=== PATIENT | male | born 1990 | race Caucasian/White ===

== ENCOUNTER 2017-06-04 16:52 | Emergency (ER) | payer OTHER ==
[2017-06-04 17:02] VITALS: BP 138/66; PULSE 103; RESP 18; TEMP 97.1
[2017-06-04] MEDS ORDERED: IBUPROFEN 600 MG TAB PO STA (17:23)
--- NOTE | 2017-06-04 17:33 | ED ---
Wound/Laceration HPI - General Chief Complaint: Wound/Laceration Stated Complaint: IHS-Thumb Injury Time Seen by Provider: 06/04/17 17:02 Source: patient Mode of arrival: ambulatory Limitations: no limitations - History of Present Illness Initial Comments: 26-year-old male patient presents to the emergency department today for evaluation of right thumb injury. Patient states around 09 100 this morning he dropped a 200 pound pool box on his thumb. Patient states he has been having throbbing pain to the thumb since then. States he has blood beneath his nail. States that he is able to bend the finger however it hurts worse when he flexes it. He denies any numbness or tingling to the finger. Denies any pain in his hand. Denies any other injuries. Patient denies any headache, neck pain, back pain, chest pain, shortness of breath, dizziness, weakness, abdominal pain, nausea, vomiting, or difficulties with bowel movements or urination. States his last tetanus immunization was one year ago. - Related Data Home Medications Medication Instructions Recorded Confirmed Buprenorphine HCl/Naloxone HCl 1 tab SUBLINGUAL BID 06/04/17 06/04/17 [Zubsolv 5.7-1.4 mg Tablet Sl] Allergies Allergy/AdvReac Type Severity Reaction Status Date / Time No Known Allergies Allergy Verified 06/04/17 17:26 Review of Systems ROS Statement: Those systems with pertinent positive or pertinent negative responses have been documented in the HPI. ROS Other: All systems not noted in ROS Statement are negative. Past Medical History Past Medical History: No Reported History History of Any Multi-Drug Resistant Organisms: None Reported Past Surgical History: No Surgical Hx Reported Past Psychological History: Anxiety Smoking Status: Current every day smoker Past Alcohol Use History: None Reported Past Drug Use History: None Reported General Exam Limitations: no limitations General appearance: alert, in no apparent distress, other (This is a well- developed, well-nourished adult male patient in no acute distress. Vital signs upon presentation are temperature 97.1F, pulse 103, respirations 18, blood pressure 138/66, pulse ox 97% on room air.) Eye exam: Present: normal appearance, PERRL, EOMI. Absent: scleral icterus, conjunctival injection, periorbital swelling ENT exam: Present: normal exam, normal oropharynx, mucous membranes moist Respiratory exam: Present: normal lung sounds bilaterally. Absent: respiratory distress, wheezes, rales, rhonchi, stridor Cardiovascular Exam: Present: regular rate, normal rhythm, normal heart sounds. Absent: systolic murmur, diastolic murmur, rubs, gallop, clicks Extremities exam: Present: full ROM, tenderness (Tenderness over the right thumb ), normal capillary refill, other (Patient has a subungual hematoma approximately 80% of the nail is involved. Patient has abrasion noted to the proximal nail fold. Skin is otherwise pink, warm, and dry. Radial pulses 2+ and equal bilaterally.). Absent: normal inspection, pedal edema, joint swelling , calf tenderness Neurological exam: Present: alert, oriented X3, CN II-XII intact Psychiatric exam: Present: normal affect, normal mood Skin exam: Present: warm, dry, intact, normal color. 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 Physical examination did reveal mild swelling surrounding the right thumb. There was subungual hematoma approximately 80%. Patient did have some blood leakage from the proximal nail fold. Patient's last tetanus was one year ago. X-ray was negative for any acute fracture or dislocation. I did discuss trephination with the patient including risks and benefits. He decided to not have the procedure performed at this time. I did educate regarding return parameters, signs or symptoms of infection, and pain control. He'll be given a finger splint to wear at work to protect the finger. He is instructed to follow-up with [facility] for further evaluation. Instructed to return here immediately for any new, worsening, or concerning symptoms. He verbalizes understanding and agrees with this plan. - Radiology Data Radiology results: report reviewed, image reviewed 3 views of the right thumb are obtained. No fracture nor dislocation. Joint spaces are normal. Impression by Dr. Rojas shows negative right thumb exam. Disposition Clinical Impression: Hematoma, subungual, thumb, right, Thumb contusion Disposition: HOME SELF-CARE Condition: Good Instructions: Subungual Hematoma (ED), Contusion in Adults (ED) Additional Instructions: Apply ice, take Tylenol and Motrin for pain control. Keep splint in place while working to protect the thumb. Monitor for signs or symptoms of infection including but not limited to redness, streaking of red, swelling, drainage of pus, fever, or chills. Follow up with [facility] for further evaluation if necessary. Return here immediately for any new, worsening, or concerning symptoms. Referrals: Marj Adams MD [Primary Care Provider] - 1-2 days Time of Disposition: 18:07
--- NOTE | 2017-06-04 17:54 | XR ---
EXAMINATION TYPE: XR finger RT DATE OF EXAM: 06/04/2017 COMPARISON: NONE HISTORY: Pain and injury TECHNIQUE: 3 views FINDINGS: I see no fracture nor dislocation. Joint spaces are normal. IMPRESSION: Negative right thumb exam.
== END 2017-06-04 18:22 | disposition home or self-care (01) ==
LOC: EC 16:52
DX: S60.111A Contusion of right thumb with damage to nail, initial encounter (principal); F17.200 Nicotine dependence, unspecified, uncomplicated; W20.8XXA Other cause of strike by thrown, projected or falling object, initial encounter; Y99.0 Civilian activity done for income or pay; Y92.69 Other specified industrial and construction area as the place of occurrence of the external cause
CPT/HCPCS: 99283

== ENCOUNTER 2017-11-02 01:24 | Emergency (ER) | payer OTHER ==
[2017-11-02] MEDS ORDERED: SODIUM CHLORIDE 0.9% 1,000 ML IV ONE (01:57)
[2017-11-02] MEDS ORDERED: LORazepam 2 MG/ML INJ IV STA (01:57)
[2017-11-02] MEDS ORDERED: diphenhydrAMINE 50 MG/ML 1 ML VIAL IVP STA (01:57)
[2017-11-02] MEDS ORDERED: METOCLOPRAMIDE 5 MG/ML 2 ML VIAL IVP STA (01:57)
[2017-11-02] MEDS ORDERED: KETOROLAC 30 MG/ML 1 ML VIAL IVP STA (01:57)
--- NOTE | 2017-11-02 02:14 | ED ---
General Adult HPI - General Chief complaint: Recheck/Abnormal Lab/Rx Stated complaint: withdrawal Time Seen by Provider: 11/02/17 01:32 Source: patient Mode of arrival: ambulatory Limitations: no limitations - History of Present Illness Initial comments: 27-year-old male patient presents to the emergency department today for evaluation of withdrawal from zubsolv. Patient has been taking this medication for the last 2 years for history of prescription drug addiction. Patient states that 4 days ago he stopped taking the zubsolv because he wanted to stop taking it. Patient states that since Sunday he has been having this burning headache to the posterior head. He states that he has been slightly nauseated. States he is been in bed for the last 4 days. States he feels very tired. Patient was hoping to come here for detox. Patient denies any recent rash, fever , chills, shortness breath, chest pain, abdominal pain, vomiting, diarrhea, constipation, back pain, numbness, tingling, dizziness, weakness, hematuria, dysuria, urinary urgency, urinary frequency, visual changes, or any other complaints. - Related Data Home Medications Medication Instructions Recorded Confirmed Buprenorphine HCl/Naloxone HCl 1 tab SUBLINGUAL BID 06/04/17 06/04/17 [Zubsolv 5.7-1.4 mg Tablet Sl] Allergies Allergy/AdvReac Type Severity Reaction Status Date / Time No Known Allergies Allergy Verified 11/02/17 01:30 Review of Systems ROS Statement: Those systems with pertinent positive or pertinent negative responses have been documented in the HPI. ROS Other: All systems not noted in ROS Statement are negative. Past Medical History Past Medical History: No Reported History History of Any Multi-Drug Resistant Organisms: None Reported Past Surgical History: No Surgical Hx Reported Past Psychological History: Anxiety Smoking Status: Current every day smoker Past Alcohol Use History: Occasional Past Drug Use History: None Reported General Exam Limitations: no limitations General appearance: alert, in no apparent distress, other (Social well-developed , well-nourished adult male patient in no acute distress. Vital signs upon presentation are temperature 98.5F, pulse 124, respirations 18, blood pressure 141/89, pulse ox 97% on room air.) Eye exam: Present: normal appearance, PERRL, EOMI. Absent: scleral icterus, conjunctival injection, periorbital swelling ENT exam: Present: normal exam, normal oropharynx, mucous membranes moist Respiratory exam: Present: normal lung sounds bilaterally. Absent: respiratory distress, wheezes, rales, rhonchi, stridor Cardiovascular Exam: Present: normal rhythm, tachycardia, normal heart sounds. Absent: systolic murmur, diastolic murmur, rubs, gallop, clicks GI/Abdominal exam: Present: soft, normal bowel sounds. Absent: distended, tenderness, guarding, rebound, rigid Neurological exam: Present: alert, oriented X3, CN II-XII intact, other ( Strength in all 4 extremities is 5/5.) Psychiatric exam: Present: normal affect, normal mood Skin exam: Present: warm, dry, intact, normal color. Absent: rash Course Vital Signs 11/02/17 01:27 Temperature 98.5 F Pulse Rate 124 H Respiratory 18 Rate Blood Pressure 141/89 O2 Sat by Pulse 97 Oximetry Medical Decision Making - Medical Decision Making 27 year-old male patient presented to the emergency department today complaining of withdrawal from zubsolv. Patient states he stopped taking the medication 4 days ago. His chief complaint is of burning headache. He was given pain medication and IV fluids here in the department as well as ativan. Upon re- evaluation symptoms are improved. We did discuss follow up outpatient for admission to rehabilitation facilities. He was given a list of available facilities. He is instructed to follow up with his primary care physician in 1- 2 days. Return parameters were discussed in detail. He verbalizes understanding and agrees with this plan. Disposition Clinical Impression: Symptom of drug withdrawal Disposition: HOME SELF-CARE Condition: Good Instructions: Opioid Withdrawal (ED) Additional Instructions: Use outpatient referral list to find appropriate rehabilitation facility. Follow up with your primary care physician for recheck in 1-2 days. Return here immediately for any new, worsening, or concerning symptoms. Is patient prescribed a controlled substance at d/c from ED?: No Referrals: Marj Adams MD [Primary Care Provider] - 1-2 days Time of Disposition: 03:45
[2017-11-02 03:57] VITALS: BP 141/82; PULSE 81; RESP 17; TEMP 97.1
== END 2017-11-02 03:56 | disposition home or self-care (01) ==
LOC: EC 01:24
DX: F19.939 Other psychoactive substance use, unspecified with withdrawal, unspecified (principal); R00.0 Tachycardia, unspecified; F17.200 Nicotine dependence, unspecified, uncomplicated; Z79.899 Other long term (current) drug therapy
CPT/HCPCS: 99283; 96374; 96375 ×3; 96361; J2060; J1200; J2765; J1885

== ENCOUNTER 2018-08-28 21:12 | Emergency (ER) | payer OTHER ==
--- NOTE | 2018-08-28 21:51 | ED ---
Psych HPI - General Source: patient, family Mode of arrival: ambulatory - History of Present Illness MD Complaint: suicidal ideation, feels depressed Onset/Timin -: week(s) Associated Psychiatric Symptoms: depression, suicidal ideation History of same: Yes Quality: getting worse Improves With: none Worsens With: none Context: recent drug abuse Associated Symptoms: denies other symptoms <Geo Wong - Last Filed: 08/28/18 21:52> <Jan Landry - Last Filed: 08/29/18 08:23> - General Chief Complaint: Psychiatric Symptoms Stated Complaint: Withdrawls, Mental Health Time Seen by Provider: 08/28/18 21:43 - History of Present Illness Initial Comments: This patient is a 28-year-old man who presents with complaint that he has been feeling suicidal. Patient states that his mood is been worsening over about the past week. He states now that he is considering suicide. Patient has had previous suicidal ideation but he states not for over a year. He is not currently receiving any treatment. (Geo Wong) - Related Data Home Medications Medication Instructions Recorded Confirmed Buprenorphine HCl/Naloxone HCl 1 tab SUBLINGUAL BID 06/04/17 08/28/18 [Zubsolv 5.7-1.4 mg Tablet Sl] Allergies Allergy/AdvReac Type Severity Reaction Status Date / Time No Known Allergies Allergy Verified 08/28/18 21:48 Review of Systems ROS Other: All systems not noted in ROS Statement are negative. Constitutional: Denies: fever Respiratory: Denies: cough, dyspnea Cardiovascular: Denies: chest pain, palpitations Gastrointestinal: Denies: abdominal pain, vomiting, diarrhea Musculoskeletal: Denies: back pain Neurological: Denies: headache, weakness, numbness Psychiatric: Reports: depression, suicidal thoughts. Denies: auditory hallucinations, visual hallucinations, homicidal thoughts <Geo Wong - Last Filed: 08/28/18 21:52> ROS Other: All systems not noted in ROS Statement are negative. <Jan Landry - Last Filed: 08/29/18 08:23> ROS Statement: Those systems with pertinent positive or pertinent negative responses have been documented in the HPI. Past Medical History Past Medical History: No Reported History History of Any Multi-Drug Resistant Organisms: None Reported Past Surgical History: No Surgical Hx Reported Past Psychological History: Anxiety, Depression Smoking Status: Current every day smoker Past Alcohol Use History: Occasional Past Drug Use History: Cocaine, Marijuana, Methamphetamine <Geo Wong Last Filed: 08/28/18 21:52> General Exam Limitations: no limitations General appearance: alert, in no apparent distress Head exam: Present: atraumatic, normocephalic Eye exam: Present: normal appearance. Absent: scleral icterus, conjunctival injection ENT exam: Present: normal oropharynx Neck exam: Present: normal inspection Respiratory exam: Present: normal lung sounds bilaterally. Absent: respiratory distress, wheezes, rales, rhonchi, stridor Cardiovascular Exam: Present: regular rate, normal rhythm, normal heart sounds. Absent: systolic murmur, diastolic murmur, rubs, gallop GI/Abdominal exam: Present: soft. Absent: tenderness Extremities exam: Present: normal inspection, normal capillary refill Neurological exam: Present: alert, oriented X3, normal gait Psychiatric exam: Present: normal affect, depressed, suicidal ideation. Absent: agitated, anxious, flat affect, manic, homicidal ideation Skin exam: Present: warm, dry, intact, normal color. Absent: rash <Geo Wong Filed: 08/28/18 21:52> Course Vital Signs 08/28/18 08/29/18 21:32 05:56 Temperature 98.2 F Pulse Rate 112 H 100 Respiratory 20 18 Rate Blood Pressure 131/88 112/59 O2 Sat by Pulse 98 97 Oximetry Medical Decision Making - Lab Data Lab Results 08/28/18 Range/Units 20:07 Urine Opiates Screen Not Detected (NotDetected) Ur Oxycodone Screen Not Detected (NotDetected) Urine Methadone Screen Not Detected (NotDetected) Ur Propoxyphene Screen Not Detected (NotDetected) Ur Barbiturates Screen Not Detected (NotDetected) U Tricyclic Antidepress Not Detected (NotDetected) Ur Phencyclidine Scrn Not Detected (NotDetected) Ur Amphetamines Screen Not Detected (NotDetected) U Methamphetamines Scrn Not Detected (NotDetected) U Benzodiazepines Scrn Not Detected (NotDetected) Urine Cocaine Screen Not Detected (NotDetected) U Marijuana (THC) Screen Not Detected (NotDetected) Disposition <Geo Wong Filed: 08/28/18 21:52> <Jan Landry - Last Filed: 08/29/18 08:23> Clinical Impression: Suicidal ideation Disposition: TRANSFER TO PSYCH HOSP/UNIT Referrals: None,Stated [Primary Care Provider] - 1-2 days
[2018-08-28 22:36] LABS: Amphetamine Screen,Urine Not Detected (NotDetected); Barbiturate Screen,Urine Not Detected (NotDetected); Benzodiazepines Screen,Urine Not Detected (NotDetected); Cocaine Screen,Urine Not Detected (NotDetected); Methadone Screen, Urine Not Detected (NotDetected); Opiate Screen,Urine Not Detected (NotDetected); Oxycodone Screen, Urine Not Detected (NotDetected); Phencyclidine Screen,Urine Not Detected (NotDetected); Tricyclic Antidepressant,Urine Not Detected (NotDetected); Urn Cannabinoid Scrn Not Detected (NotDetected)
[2018-08-29] MEDS ORDERED: ALPRAZolam 0.25 MG TAB PO STA (08:31)
[2018-08-29 11:01] VITALS: BP 132/89; PULSE 93; RESP 19; TEMP 98.5
== END 2018-08-29 11:32 ==
LOC: EC 21:12
DX: R45.851 Suicidal ideations (principal); F32.9 Major depressive disorder, single episode, unspecified; F19.10 Other psychoactive substance abuse, uncomplicated; F17.200 Nicotine dependence, unspecified, uncomplicated; Z79.899 Other long term (current) drug therapy
CPT/HCPCS: 80306; 82075; 99285

== ENCOUNTER 2018-09-13 12:09 | Emergency (ER) | payer OTHER ==
[2018-09-13 12:20] VITALS: BP 115/73; RESP 18
--- NOTE | 2018-09-13 13:08 | ED ---
Psych HPI - General Chief Complaint: Psychiatric Symptoms Stated Complaint: Withdrawls Time Seen by Provider: 09/13/18 12:22 Source: patient, RN notes reviewed Mode of arrival: ambulatory Limitations: no limitations - History of Present Illness Initial Comments: This a 28 year old male presents emergency Department with chief complaint of withdrawals. Patient states that he was recently admitted to [facility] for drug relapse. Patient states that he was on Suboxone is that her though he was not discharged with it because he cannot describe it. Patient states that he is advised to follow up with [facility] but states at [facility] is not having appointment for one month. Patient was receiving Suboxone from Dr. Barrios though after his relapse he will was not willing to prescribe it anymore. Patient states that he feels that he is withdrawing from it states that he's had nausea vomiting, heart racing. Patient states he just generalized does not feel well. He states he has multiple flulike symptoms. Patient denies being suicidal or homicidal. - Related Data Home Medications Medication Instructions Recorded Confirmed Atomoxetine HCl [Strattera] 40 mg PO DAILY 09/13/18 09/13/18 Doxepin HCl [SINEquan] 150 mg PO HS 09/13/18 09/13/18 buPROPion XL [Wellbutrin Xl] 150 mg PO DAILY 09/13/18 09/13/18 Allergies Allergy/AdvReac Type Severity Reaction Status Date / Time No Known Allergies Allergy Verified 09/13/18 12:24 Review of Systems ROS Statement: Those systems with pertinent positive or pertinent negative responses have been documented in the HPI. ROS Other: All systems not noted in ROS Statement are negative. Past Medical History Past Medical History: No Reported History Additional Past Medical History / Comment(s): heroine and cocaine use History of Any Multi-Drug Resistant Organisms: None Reported Past Surgical History: No Surgical Hx Reported Past Psychological History: Anxiety, Depression Smoking Status: Current every day smoker Past Alcohol Use History: Occasional Past Drug Use History: Cocaine, Marijuana, Methamphetamine General Exam Limitations: no limitations General appearance: alert, in no apparent distress Head exam: Present: atraumatic, normocephalic, normal inspection Eye exam: Present: normal appearance, PERRL, EOMI. Absent: scleral icterus, conjunctival injection, periorbital swelling ENT exam: Present: normal exam, mucous membranes moist Neck exam: Present: normal inspection. Absent: tenderness, meningismus, lymphadenopathy Respiratory exam: Present: normal lung sounds bilaterally. Absent: respiratory distress, wheezes, rales, rhonchi, stridor Cardiovascular Exam: Present: normal rhythm, tachycardia, normal heart sounds. Absent: systolic murmur, diastolic murmur, rubs, gallop, clicks GI/Abdominal exam: Present: soft, normal bowel sounds. Absent: distended, tenderness, guarding, rebound, rigid Neurological exam: Present: alert, oriented X3, CN II-XII intact Psychiatric exam: Present: normal affect, normal mood Skin exam: Present: warm, dry, intact, normal color. Absent: rash Course Vital Signs 09/13/18 12:17 Temperature 98.7 F Pulse Rate 118 H Respiratory 18 Rate Blood Pressure 115/73 O2 Sat by Pulse 98 Oximetry Medical Decision Making - Medical Decision Making 28-year-old male presented for withdrawal from Suboxone. Patient case was evaluated by EPS and psychiatrists patient has an appointment made for him now on Sunday with [facility] for his Suboxone. Patient agrees this plan is not suicidal or homicidal. - Lab Data Lab Results 09/13/18 Range/Units 12:55 Urine Opiates Screen Not Detected (NotDetected) Ur Oxycodone Screen Not Detected (NotDetected) Urine Methadone Screen Not Detected (NotDetected) Ur Propoxyphene Screen Not Detected (NotDetected) Ur Barbiturates Screen Not Detected (NotDetected) U Tricyclic Antidepress Detected H (NotDetected) Ur Phencyclidine Scrn Not Detected (NotDetected) Ur Amphetamines Screen Not Detected (NotDetected) U Methamphetamines Scrn Not Detected (NotDetected) U Benzodiazepines Scrn Detected H (NotDetected) Urine Cocaine Screen Not Detected (NotDetected) U Marijuana (THC) Screen Not Detected (NotDetected) Disposition Clinical Impression: Drug withdrawal Disposition: HOME SELF-CARE Condition: Stable Instructions (If sedation given, give patient instructions): Buprenorphine/Naloxone (Into the mouth) Additional Instructions: Please return to the Emergency Department if symptoms worsen or any other concerns. Is patient prescribed a controlled substance at d/c from ED?: No Referrals: None,Stated [Primary Care Provider] - 1-2 days Time of Disposition: 14:52
[2018-09-13 13:17] LABS: Amphetamine Screen,Urine Not Detected (NotDetected); Barbiturate Screen,Urine Not Detected (NotDetected); Benzodiazepines Screen,Urine Detected (NotDetected); Cocaine Screen,Urine Not Detected (NotDetected); Methadone Screen, Urine Not Detected (NotDetected); Opiate Screen,Urine Not Detected (NotDetected); Oxycodone Screen, Urine Not Detected (NotDetected); Phencyclidine Screen,Urine Not Detected (NotDetected); Tricyclic Antidepressant,Urine Detected (NotDetected); Urn Cannabinoid Scrn Not Detected (NotDetected)
[2018-09-13 16:09] VITALS: PULSE 87; TEMP 98
== END 2018-09-13 16:13 | disposition home or self-care (01) ==
LOC: EC 12:09
DX: F11.23 Opioid dependence with withdrawal (principal); R11.2 Nausea with vomiting, unspecified; F32.9 Major depressive disorder, single episode, unspecified; F41.9 Anxiety disorder, unspecified; F17.200 Nicotine dependence, unspecified, uncomplicated; Z79.899 Other long term (current) drug therapy
CPT/HCPCS: 80306; 99284

== ENCOUNTER 2019-10-19 21:56 | Emergency (ER) | payer OTHER ==
[2019-10-19] MEDS ORDERED: SODIUM CHLORIDE 0.9% 1,000 ML IV STA (22:37)
[2019-10-19 23:38] LABS: Basophils % (A) 0 %; Eosinophils % (A) 1 %; HCT 42.9 % (39.0-53.0); HGB 14.2 gm/dL (13.0-17.5); Lymphocytes # (A) 1.7 k/uL (1.0-4.8); Lymphocytes % (A) 26 %; MCH 29.6 pg (25.0-35.0); MCHC 33.1 g/dL (31.0-37.0); MCV 89.2 fL (80.0-100.0); Mean Platelet Volume 6.6; Monocytes # (A) 0.3 k/uL (0-1.0); Monocytes % (A) 5 %; Neutrophils # (A) 4.3 k/uL (1.3-7.7); Neutrophils % (A) 66 %; Platelet Count 301 k/uL (150-450); RDW 12.7 % (11.5-15.5); WBC 6.6 k/uL (3.8-10.6)
[2019-10-19 23:44] LABS: Appearance,Urine Clear (Clear); Bilirubin,Urine Negative (Negative); Blood,Urine Negative (Negative); Color,Urine Yellow; Glucose,Urine (UA) Negative (Negative); Ketones,Urine 3+ (Negative); Leukocyte Esterase,Urine Negative (Negative); Nitrite,Urine Negative (Negative); Protein,Urine Trace (Negative); Specific Gravity,Urine 1.027 (1.001-1.035); Urobilinogen,Urine <2.0 mg/dL (<2.0)
--- NOTE | 2019-10-19 23:47 | XR ---
EXAMINATION TYPE: XR chest 2V DATE OF EXAM: 10/19/2019 COMPARISON: NONE HISTORY: Chest pain TECHNIQUE: 2 views FINDINGS: Heart and mediastinum are normal. Lungs are clear. Diaphragm is normal. Bony thorax appears normal. IMPRESSION: Normal chest.
[2019-10-19 23:48] LABS: Partial Thromboplastin Time 22.8 sec (22.0-30.0); Prothrombin Time 10.1 sec (9.0-12.0)
[2019-10-20 00:14] LABS: ALT 30 U/L (4-49); AST 49 U/L (17-59); African American GFR (CKD) >90 (>60 ml/min/1.73 sqM); Albumin 5.3 g/dL (3.5-5.0); Alkaline Phosphatase 85 U/L (38-126); Anion Gap 18 mmol/L; Blood Urea Nitrogen 15 mg/dL (9-20); Calcium 9.5 mg/dL (8.4-10.2); Carbon Dioxide 17 mmol/L (22-30); Chloride 102 mmol/L (98-107); Glucose 63 mg/dL (74-99); Magnesium 2.3 mg/dL (1.6-2.3); Non-African American GFR(CKD) >90 (>60 ml/min/1.73 sqM); Potassium 4.2 mmol/L (3.5-5.1); Sodium 137 mmol/L (137-145); Total Bilirubin 0.9 mg/dL (0.2-1.3); Total Protein 7.7 g/dL (6.3-8.2)
[2019-10-20 00:16] LABS: Amphetamine Screen,Urine Detected (NotDetected); Barbiturate Screen,Urine Not Detected (NotDetected); Benzodiazepines Screen,Urine Not Detected (NotDetected); Cocaine Screen,Urine Not Detected (NotDetected); Methadone Screen, Urine Not Detected (NotDetected); Opiate Screen,Urine Not Detected (NotDetected); Oxycodone Screen, Urine Not Detected (NotDetected); Phencyclidine Screen,Urine Not Detected (NotDetected); Tricyclic Antidepressant,Urine Not Detected (NotDetected); Urn Cannabinoid Scrn Not Detected (NotDetected)
[2019-10-20] MEDS ORDERED: ACETAMINOPHEN TAB 325 MG TAB PO STA (00:33)
[2019-10-20] MEDS ORDERED: ONDANSETRON 4 MG/2 ML VIAL IVP STA (00:33)
--- NOTE | 2019-10-20 00:48 | ED ---
General Adult HPI - General Chief complaint: Arrhythmia/Palpitations Stated complaint: Poss overdose Time Seen by Provider: 10/19/19 22:14 Source: patient, RN notes reviewed, old records reviewed Mode of arrival: ambulatory Limitations: no limitations - History of Present Illness Initial comments: 29-year-old male patient previously for evaluation heart palpitations. Patient reports that he has been up the last 2 days doing methamphetamine. He denies a ny chest pain or shortness of breath. He denies any other complaints. Systemic: Pt denies fatigue, fever/chills, rash. Pt denies weakness, night sweats, weight loss. Neuro: Pt denies headache, visual disturbances, syncope or pre-syncope. HEENT: Pt denies ocular discharge or irritation, otalgia, rhinorrhea, pharyngitis or notable lymphadenopathy. Cardiopulmonary: Pt denies chest pain, SOB, dyspnea on exertion. Abdominal/GI: Pt denies abdominal pain, n/v/d. : Pt denies dysuria, burning w/ urination, frequency/urgency. Denies new onset urinary or bowel incontinence. MSK: Pt denies myalgia, loss of strength or function in extremities. Neuro: Pt denies new onset weakness, paresthesias. - Related Data Home Medications Medication Instructions Recorded Confirmed Atomoxetine HCl [Strattera] 40 mg PO DAILY 09/13/18 09/13/18 Doxepin HCl [SINEquan] 150 mg PO HS 09/13/18 09/13/18 buPROPion XL [Wellbutrin Xl] 150 mg PO DAILY 09/13/18 09/13/18 Previous Rx's Medication Instructions Recorded Ondansetron Odt [Zofran Odt] 4 mg PO Q8HR PRN #10 tab 09/13/18 Allergies Allergy/AdvReac Type Severity Reaction Status Date / Time No Known Allergies Allergy Verified 10/19/19 22:06 Review of Systems ROS Statement: Those systems with pertinent positive or pertinent negative responses have been documented in the HPI. ROS Other: All systems not noted in ROS Statement are negative. Past Medical History Past Medical History: No Reported History Additional Past Medical History / Comment(s): heroine and cocaine use History of Any Multi-Drug Resistant Organisms: None Reported Past Surgical History: No Surgical Hx Reported, Orthopedic Surgery Additional Past Surgical History / Comment(s): r wrist. Past Psychological History: Anxiety, Depression Smoking Status: Current every day smoker Past Alcohol Use History: Occasional Past Drug Use History: Methamphetamine General Exam - General Exam Comments Initial Comments: Constitutional: NAD, AOX3, Pt has pleasant affect. HEENT: NC/AT, trachea midline, neck supple, no lymphadenopathy. External ears appear normal, without discharge. Mucous membranes moist. Eyes PERRLA, EOM intact. There is no scleral icterus. No pallor noted. Cardiopulmonary: RRR, no murmurs, rubs or gallops, no JVD noted. Lungs CTAB in anterior and posterior gott[place]. No peripheral edema. Abdominal exam: Abdomen soft and non-distended. Abdomen non-tender to palpation in all 4 quadrants. Bowel sounds active in LLQ. No hepatosplenomegaly. No ecchymosis Neuro: CN II-XII grossly intact. No nuchal rigidity. No raccon eyes, no thompson sign, no hemotympanum. No cervical spinal tenderness. MSK: No posterior calf tenderness bilaterally, homans sign negative bilaterally. Posterior tibialis and radial pulse +2 bilaterally. Sensation intact in upper and lower extremities. Full active ROM in upper and lower extremities, 5/5 stregnth. Limitations: no limitations Course Vital Signs 10/19/19 10/19/19 10/20/19 22:03 22:42 00:10 Temperature 98.5 F 98.3 F Pulse Rate 115 H 94 Pulse Rate [ 104 H Pulse Oximetery ] Respiratory 18 18 Rate Blood Pressure 129/74 124/73 O2 Sat by Pulse 97 97 Oximetry Medical Decision Making - Medical Decision Making 29-year-old male patient presents to ED for evaluation heart palpitations. Last 2 days doing methamphetamine. Patient vital signs initial displayed mild tachycardia but are now stable. Physical exam did not display acute pathology. EKG nonischemic. Laboratory investigations significant for tox screen positive for amphetamines, methamphetamine, 3+ ketones in urine. Patient reports that he has not eaten last 2 days. Patient was fed an emergency department is feeling improved and discharged for follow-up with primary care provider, return to ED if condition worsens. will be advised to abstain from further drug use. Case discussed with Dr. Valencia. - Lab Data Result diagrams: 10/19/19 23:13 10/19/19 23:13 Lab Results 07/12/20 07/12/20 07/12/20 Range/Units 23:13 23:13 23:13 WBC 6.6 (3.8-10.6) k/uL RBC 4.80 (4.30-5.90) m/uL Hgb 14.2 (13.0-17.5) gm/dL Hct 42.9 (39.0-53.0) % MCV 89.2 (80.0-100.0) fL MCH 29.6 (25.0-35.0) pg MCHC 33.1 (31.0-37.0) g/dL RDW 12.7 (11.5-15.5) % Plt Count 301 (150-450) k/uL Neutrophils % 66 % Lymphocytes % 26 % Monocytes % 5 % Eosinophils % 1 % Basophils % 0 % Neutrophils # 4.3 (1.3-7.7) k/uL Lymphocytes # 1.7 (1.0-4.8) k/uL Monocytes # 0.3 (0-1.0) k/uL Eosinophils # 0.0 (0-0.7) k/uL Basophils # 0.0 (0-0.2) k/uL PT 10.1 (9.0-12.0) sec INR 1.0 (<1.2) APTT 22.8 (22.0-30.0) sec Sodium (137-145) mmol/L Potassium (3.5-5.1) mmol/L Chloride (98-107) mmol/L Carbon Dioxide (22-30) mmol/L Anion Gap mmol/L BUN (9-20) mg/dL Creatinine (0.66-1.25) mg/dL Est GFR (CKD-EPI)AfAm (>60 ml/min/1.73 sqM) Est GFR (CKD-EPI)NonAf (>60 ml/min/1.73 sqM) Glucose (74-99) mg/dL Calcium (8.4-10.2) mg/dL Magnesium (1.6-2.3) mg/dL Total Bilirubin (0.2-1.3) mg/dL AST (17-59) U/L ALT (4-49) U/L Alkaline Phosphatase (38-126) U/L Troponin I (0.000-0.034) ng/mL Total Protein (6.3-8.2) g/dL Albumin (3.5-5.0) g/dL Urine Color Yellow Urine Appearance Clear (Clear) Urine pH 5.0 (5.0-8.0) Ur Specific [place] 1.027 (1.001-1.035) Urine Protein Trace H (Negative) Urine Glucose (UA) Negative (Negative) Urine Ketones 3+ H (Negative) Urine Blood Negative (Negative) Urine Nitrite Negative (Negative) Urine Bilirubin Negative (Negative) Urine Urobilinogen <2.0 (<2.0) mg/dL Ur Leukocyte Esterase Negative (Negative) Urine Opiates Screen Not Detected (NotDetected) Ur Oxycodone Screen Not Detected (NotDetected) Urine Methadone Screen Not Detected (NotDetected) Ur Propoxyphene Screen Not Detected (NotDetected) Ur Barbiturates Screen Not Detected (NotDetected) U Tricyclic Antidepress Not Detected (NotDetected) Ur Phencyclidine Scrn Not Detected (NotDetected) Ur Amphetamines Screen Detected H (NotDetected) U Methamphetamines Scrn Detected H (NotDetected) U Benzodiazepines Scrn Not Detected (NotDetected) Urine Cocaine Screen Not Detected (NotDetected) U Marijuana (THC) Screen Not Detected (NotDetected) 10/19/19 10/19/19 Range/Units 23:13 23:13 WBC (3.8-10.6) k/uL RBC (4.30-5.90) m/uL Hgb (13.0-17.5) gm/dL Hct (39.0-53.0) % MCV (80.0-100.0) fL MCH (25.0-35.0) pg MCHC (31.0-37.0) g/dL RDW (11.5-15.5) % Plt Count (150-450) k/uL Neutrophils % % Lymphocytes % % Monocytes % % Eosinophils % % Basophils % % Neutrophils # (1.3-7.7) k/uL Lymphocytes # (1.0-4.8) k/uL Monocytes # (0-1.0) k/uL Eosinophils # (0-0.7) k/uL Basophils # (0-0.2) k/uL PT (9.0-12.0) sec INR (<1.2) APTT (22.0-30.0) sec Sodium 137 (137-145) mmol/L Potassium 4.2 (3.5-5.1) mmol/L Chloride 102 (98-107) mmol/L Carbon Dioxide 17 L (22-30) mmol/L Anion Gap 18 mmol/L BUN 15 (9-20) mg/dL Creatinine 1.03 (0.66-1.25) mg/dL Est GFR (CKD-EPI)AfAm >90 (>60 ml/min/1.73 sqM) Est GFR (CKD-EPI)NonAf >90 (>60 ml/min/1.73 sqM) Glucose 63 L (74-99) mg/dL Calcium 9.5 (8.4-10.2) mg/dL Magnesium 2.3 (1.6-2.3) mg/dL Total Bilirubin 0.9 (0.2-1.3) mg/dL AST 49 (17-59) U/L ALT 30 (4-49) U/L Alkaline Phosphatase 85 (38-126) U/L Troponin I <0.012 (0.000-0.034) ng/mL Total Protein 7.7 (6.3-8.2) g/dL Albumin 5.3 H (3.5-5.0) g/dL Urine Color Urine Appearance (Clear) Urine pH (5.0-8.0) Ur Specific [place] (1.001-1.035) Urine Protein (Negative) Urine Glucose (UA) (Negative) Urine Ketones (Negative) Urine Blood (Negative) Urine Nitrite (Negative) Urine Bilirubin (Negative) Urine Urobilinogen (<2.0) mg/dL Ur Leukocyte Esterase (Negative) Urine Opiates Screen (NotDetected) Ur Oxycodone Screen (NotDetected) Urine Methadone Screen (NotDetected) Ur Propoxyphene Screen (NotDetected) Ur Barbiturates Screen (NotDetected) U Tricyclic Antidepress (NotDetected) Ur Phencyclidine Scrn (NotDetected) Ur Amphetamines Screen (NotDetected) U Methamphetamines Scrn (NotDetected) U Benzodiazepines Scrn (NotDetected) Urine Cocaine Screen (NotDetected) U Marijuana (THC) Screen (NotDetected) - EKG Data -: EKG Interpreted by Me (and Dr. Valencia) EKG Comments: Ventricular rate 99,. And for 114, QRS 80, QT/QTC 350/4.9. Normal sinus rhythm, normal EKG, no concern for acute ischemia. Disposition Clinical Impression: Methamphetamine abuse Disposition: HOME SELF-CARE Condition: Stable Instructions (If sedation given, give patient instructions): Methamphetamine Abuse (ED) Additional Instructions: Follow-up with primary care provider tomorrow. I do not recommend that you use any more illegal drugs. Return to ER if condition worsens. Is patient prescribed a controlled substance at d/c from ED?: No Referrals: None,Stated [Primary Care Provider] - 1-2 days Dutch Jean [STAFF PHYSICIAN] - 1-2 days
[2019-10-20 01:40] VITALS: BP 116/63; PULSE 89; RESP 14; TEMP 98.2
== END 2019-10-20 01:30 | disposition home or self-care (01) ==
LOC: EC 21:56
DX: F15.10 Other stimulant abuse, uncomplicated (principal); R00.0 Tachycardia, unspecified; F17.200 Nicotine dependence, unspecified, uncomplicated; F41.9 Anxiety disorder, unspecified; F32.9 Major depressive disorder, single episode, unspecified; Z79.899 Other long term (current) drug therapy
CPT/HCPCS: 36415; 71046; 80053; 80306; 81003; 83735; 84484; 85025; 85610; 85730; 93005; 96361; 96374; 99285

== ENCOUNTER 2021-04-07 09:56 | Emergency (ER) | payer OTHER ==
[2021-04-07 10:14] VITALS: BP 149/93; PULSE 69; RESP 18; TEMP 98.8
--- NOTE | 2021-04-07 12:07 | ED ---
General Adult HPI - General Source: patient Mode of arrival: ambulatory Limitations: no limitations <Panda Martinez - Last Filed: 04/07/21 12:06> <Lucy Myers - Last Filed: 04/07/21 23:16> - General Chief complaint: Upper Respiratory Infection Stated complaint: Covid test Time Seen by Provider: 04/07/21 11:44 - History of Present Illness Initial comments: 30-year-old male presents to the emergency room for COVID-19 test. Patient has had a runny nose and not felt well for about 3 days. Patient was exposed to COVID-19 5 days ago. He has also had some nausea. Denies fevers. Denies cough or shortness of breath. Patient is only here for COVID-19 test.Patient has no other complaints at this time including shortness of breath, chest pain, abdominal pain, nausea or vomiting, headache, or visual changes. (Panda Martinez) - Related Data Home Medications Medication Instructions Recorded Confirmed Atomoxetine HCl [Strattera] 40 mg PO DAILY 09/13/18 09/13/18 Doxepin HCl [SINEquan] 150 mg PO HS 09/13/18 09/13/18 buPROPion XL [Wellbutrin Xl] 150 mg PO DAILY 09/13/18 09/13/18 Previous Rx's Medication Instructions Recorded Ondansetron Odt [Zofran Odt] 4 mg PO Q8HR PRN #10 tab 09/13/18 Allergies Allergy/AdvReac Type Severity Reaction Status Date / Time No Known Allergies Allergy Verified 04/07/21 10:12 Review of Systems ROS Other: All systems not noted in ROS Statement are negative. <Panda Martinez - Last Filed: 04/07/21 12:06> ROS Other: All systems not noted in ROS Statement are negative. <Lucy Myers - Last Filed: 04/07/21 23:16> ROS Statement: Those systems with pertinent positive or pertinent negative responses have been documented in the HPI. Past Medical History Past Medical History: No Reported History Additional Past Medical History / Comment(s): heroine and cocaine use History of Any Multi-Drug Resistant Organisms: None Reported Past Surgical History: No Surgical Hx Reported, Orthopedic Surgery Additional Past Surgical History / Comment(s): r wrist. Past Psychological History: Anxiety, Depression Smoking Status: Current every day smoker Past Alcohol Use History: Occasional Past Drug Use History: None Reported, Methamphetamine <Panda Martinez - Last Filed: 04/07/21 12:06> General Exam Limitations: no limitations General appearance: alert, in no apparent distress Head exam: Present: atraumatic Eye exam: Present: normal appearance, PERRL, EOMI. Absent: scleral icterus, conjunctival injection ENT exam: Present: normal exam, mucous membranes moist Neck exam: Present: normal inspection, full ROM. Absent: tenderness Respiratory exam: Present: normal lung sounds bilaterally. Absent: respiratory distress, wheezes Cardiovascular Exam: Present: regular rate, normal rhythm, normal heart sounds GI/Abdominal exam: Present: soft, normal bowel sounds. Absent: distended, tenderness Neurological exam: Present: alert <Panda Martinez - Last Filed: 04/07/21 12:06> Course Vital Signs 04/07/21 10:12 Temperature 98.8 F Pulse Rate 69 Respiratory 18 Rate Blood Pressure 149/93 O2 Sat by Pulse 98 Oximetry Medical Decision Making <Panda Martinez - Last Filed: 04/07/21 12:06> <Lucy Myers - Last Filed: 04/07/21 23:16> - Medical Decision Making Vitals are stable. Patient is well-appearing. COVID-19 test negative. Patient likely has viral upper respiratory infection. Can be discharged home to follow up with primary care. Can return here for any worsening symptoms or (Panda Martinez) I was available for consultation in the emergency department. The history and physical exam were done by the midlevel provider. I was consulted for this patients care. I reviewed the case with the midlevel provider and based on their presentation of the patient, I agree with the assessment, medical decision making and plan of care as documented. Chart was dictated using Sparrow dictation software. Attempts were made to correct any dictation errors however some typographical errors may persist. Patient was seen during a national state of emergency due to the Covid-19 pandemic. (Lucy Myers) - Lab Data Lab Results 04/07/21 Range/Units 10:15 Coronavirus (PCR) Not Detected (Not Detectd) Disposition Is patient prescribed a controlled substance at d/c from ED?: No Time of Disposition: 12:07 <Panda Martinez - Last Filed: 04/07/21 12:06> <Lucy Myers - Last Filed: 04/07/21 23:16> Clinical Impression: Rhinosinusitis Disposition: HOME SELF-CARE Condition: Good Instructions (If sedation given, give patient instructions): Upper Respiratory Infection (ED) Additional Instructions: Please take [id number] medications. Follow-up with your doctor in one to 2 days. Return to the emergency room for any worsening symptoms. Referrals: Ted Oneil MD [Primary Care Provider] - 1-2 days
== END 2021-04-07 12:10 | disposition home or self-care (01) ==
LOC: EC 09:56
DX: J01.90 Acute sinusitis, unspecified (principal); F41.9 Anxiety disorder, unspecified; F32.A Depression, unspecified; F17.200 Nicotine dependence, unspecified, uncomplicated; Z20.822 Contact with and (suspected) exposure to COVID-19
CPT/HCPCS: 87635; 99283

== ENCOUNTER → 2022-10-05 | Outpatient (CLI) | payer OTHER ==
--- NOTE | 2022-10-05 12:34 | P.SLEEP ---
History of Present Illness DATE: 10/05/2022 CONSULTATION/NEW PATIENT EVALUATION HISTORY OF PRESENT ILLNESS/SLEEP-WAKE EVALUATION: 32-year-old gentleman had been evaluated in the sleep center for possible obstructive sleep apnea hypopnea syndrome and significant excessive daytime sleepiness. SLEEP SCHEDULE: Usually sleep schedule from 89 PM until 6 AM on weekdays and from 11 PM until 68 AM on weekend. FALLING ASLEEP: Patient has problems with falling asleep, has TV set and bedroom. DURING SLEEP: Patient usually sleeps on the back position with snoring, witnessed episodes of stop breathing during the sleep, awakenings from sleep with gasping for air, dry mouth, panic attacks and palpitations up to 5 times with 2 episodes of nocturia. Positive history of tossing and turning during the sleep sleep talking, wake up screaming. No history of hypnogogical hallucinations, sleep paralysis, or cataplexy. DURING THE DAY/WAKE STATE: In the morning patient wake up tired, has difficulties to pay attention during the day, falling asleep during the day, has problems with memory, concentration, irritability, anxiety. [place] sleepiness scale is in very high range of 19 which indicate significant sleepiness. Patient takes nap in the early afternoon. PAST MEDICAL HISTORY: Asthma, depression, anxiety. PAST SURGICAL HISTORY: Right arm surgery after dog bite and for correction of carpal tunnel syndrome. MEDICATIONS: Gabapentin, albuterol, hydroxyzine. SOCIAL HISTORY: Positive history of wiping, alcohol consumption occasional. FAMILY HISTORY: Hypertension, sleep apnea. REVIEW OF SYSTEMS: Snoring, multiple awakenings from sleep, significant excessive daytime sleepiness. No fevers. No double vision. No recent chest pain. No shortness of breath. No abdominal pain. No bleeding episodes. No blood in urine. No seizure episodes. PHYSICAL EXAMINATION: GENERAL: A pleasant patient without any distress. VITAL SIGNS: BP 136/87 , HR 82 , RR 12 , weight 167.2 pounds, height 5 foot 9 inches, body mass index 24.4 . HEENT: PERRLA, EOMI. Evaluation of oropharynx showed tongue protrudes midline, low position of soft palate Mallampati 2. NECK: Supple. No JVD. Thyroid is not palpable. 14.5 inches in circumference. LUNGS: Clear to percussion and to auscultation. Good air exchange. No wheezing or rhonchi. HEART: S1, S2 regular. No murmurs, gallops or rubs. ABDOMEN: Soft and nontender. Bowel sounds are present. No organomegaly appreciated. EXTREMITIES: No clubbing or cyanosis. 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 Cranial nerves 2 to 7 intact. There is no fasciculation or atrophy noted. No focal deficits observed. ASSESSMENT: 1. Snoring, multiple awakenings from sleep, witnessed episodes of stop breathing during the sleep, sleepiness. Possible obstructive sleep apnea hypopnea syndrome. 2. Significant excessive daytime sleepiness with [place] Sleepiness Scale 19 dictated necessity to include narcolepsy2 and idiopathic hypersomnia in differential diagnosis. 3. History of depression. 4. History of anxiety. 5 status post a right arm surgery. PLAN: 1. Polysomnography for evaluation of patient's breathing during sleep. Multiple sleep latency test if polysomnogram will be negative for obstructive sleep apnea hypopnea syndrome. 2. Following plan after eating sleep test. 3. Preferable position during sleep on the side. 4. No driving if patient feels any sleepiness. Patient is aware of civil and criminal liability for unsafe driving. 5. Sleep hygiene with regular sleep time for at least 7.5-8 hours. 6. Watching weight. Thank you very much for referring this patient for consultation. Sincerely, Zachery Freed MD, PhD, FAASM. Diplomat of [place] [employer], Sleep Medicine Board by [place] [employer] [place] [employer] Director [facility] [place] Past Medical History Past Medical History: No Reported History Additional Past Medical History / Comment(s): heroine and cocaine use History of Any Multi-Drug Resistant Organisms: None Reported Past Surgical History: No Surgical Hx Reported, Orthopedic Surgery Additional Past Surgical History / Comment(s): r wrist. Past Psychological History: Anxiety, Depression Smoking Status: Current every day smoker Past Alcohol Use History: Occasional Past Drug Use History: None Reported, Methamphetamine Medications and Allergies Home Medications Medication Instructions Recorded Confirmed Type Atomoxetine HCl [Strattera] 40 mg PO DAILY 09/13/18 09/13/18 History Doxepin HCl [SINEquan] 150 mg PO HS 09/13/18 09/13/18 History Ondansetron Odt [Zofran Odt] 4 mg PO Q8HR PRN #10 tab 09/13/18 Rx buPROPion XL [Wellbutrin Xl] 150 mg PO DAILY 09/13/18 09/13/18 History Allergies Allergy/AdvReac Type Severity Reaction Status Date / Time No Known Allergies Allergy Verified 04/07/21 10:12 Sleep Note - Sleep Note Sleep Note: Temperature: Pulse Rate: Respiratory Rate: Blood Pressure: SpO2: Height: Weight: BMI: Neck Circumference:
== END ==
LOC: 3 N SLEEP 11:45
PROVIDERS: ATTEND Internal Medicine
DX: R06.83 Snoring (principal); G47.419 Narcolepsy without cataplexy; F32.A Depression, unspecified; F41.9 Anxiety disorder, unspecified; J45.909 Unspecified asthma, uncomplicated; F17.200 Nicotine dependence, unspecified, uncomplicated; Z79.51 Long term (current) use of inhaled steroids; Z98.890 Other specified postprocedural states
CPT/HCPCS: 99211

== ENCOUNTER 2023-04-15 13:08 | Inpatient (IN) | payer OTHER ==
[2023-04-15] MEDS ORDERED: SODIUM CHLORIDE 0.9% 1,000 ML IV ONE (13:24)
[2023-04-15] MEDS ORDERED: NICOTINE 14MG/24HR PATCH TRANSDERM STA (13:41)
[2023-04-15] MEDS ORDERED: LORazepam 2 MG/ML INJ IV STA (13:42)
[2023-04-15 14:08] LABS: Basophils % (A) 0 %; Eosinophils % (A) 1 %; Lymphocytes # (A) 1.4 k/uL (1.0-4.8); Lymphocytes % (A) 23 %; MCH 31.3 pg (25.0-35.0); MCHC 34.7 g/dL (31.0-37.0); Mean Platelet Volume 7.4; Monocytes # (A) 0.2 k/uL (0-1.0); Monocytes % (A) 4 %; Neutrophils # (A) 4.2 k/uL (1.3-7.7); Neutrophils % (A) 69 %; Platelet Count 332 k/uL (150-450); RBC 5.44 m/uL (4.30-5.90); WBC 6.1 k/uL (3.8-10.6)
--- NOTE | 2023-04-15 14:12 | XR ---
EXAMINATION TYPE: XR chest 2V DATE OF EXAM: 04/15/2023 COMPARISON: 10/19/2019 HISTORY: 32-year-old male palpitations TECHNIQUE: PA and lateral views FINDINGS: The cardiomediastinal silhouette, aorta, and pulmonary vasculature are within normal limits. Lungs an d pleural spaces are clear. IMPRESSION: No acute cardiopulmonary process.
[2023-04-15 14:30] LABS: ALT 344 U/L (4-49); AST 412 U/L (17-59); African American GFR (CKD) >90 (>60 ml/min/1.73 sqM); Albumin 5.4 g/dL (3.5-5.0); Alkaline Phosphatase 97 U/L (38-126); Anion Gap 19 mmol/L; Blood Urea Nitrogen 7 mg/dL (9-20); Calcium 9.5 mg/dL (8.4-10.2); Carbon Dioxide 23 mmol/L (22-30); Chloride 104 mmol/L (98-107); Glucose 114 mg/dL (74-99); Magnesium 2.3 mg/dL (1.6-2.3); Non-African American GFR(CKD) >90 (>60 ml/min/1.73 sqM); Potassium 4.1 mmol/L (3.5-5.1); Sodium 146 mmol/L (137-145); Total Bilirubin 0.5 mg/dL (0.2-1.3); Total Protein 8.7 g/dL (6.3-8.2)
[2023-04-15 14:43] LABS: Alcohol 407 mg/dL
--- NOTE | 2023-04-15 15:02 | CT ---
EXAMINATION TYPE: CT brain radha wo con DATE OF EXAM: 04/15/2023 COMPARISON: 12/18/2011 HISTORY: 32-year-old male head and neck pain CT DLP: 1339 mGycm Automated exposure control for dose reduction was used. Technique: Examination of the head was done in axial plane without intravenous contrast. Coronal and sagittal reconstructions performed. CT of the cervical spine was obtained in axial plane without intravenous injection of contrast mater ial. Coronal and sagittal reformatted images were obtained from the axial views for evaluation of f ractures, spinal alignment and canal. FINDINGS: Head: There is no evidence of acute intracranial hemorrhage, acute ischemic changes, mass, mass-effect, or extra-axial fluid collection. There is no effacement of cerebral sulci or basal subarachnoid cister ns. There is no hydrocephalus. There is no midline shift. [place]-white matter distinction is preserv ed. Benign bilateral basal ganglionic calcifications. Moderate to severe mucosal thickening right frontal sinus and anterior right ethmoid air cells. Mild mucosal thickening right maxillary sinus. Slight leftward nasal septal location. Mastoid air cells well pneumatized. Orbits and globes are intact. Cervical spine: No craniocervical junction anomaly, predental space widening, or prevertebral soft tissue swelling. No acute fracture seen of the cervical spine. Alignment is maintained. No significant degenerative change identified. Sagittal and coronal reformatted images confirm above findings. COMBINED IMPRESSION: 1. No acute intracranial abnormality seen. 2. Acute fracture or malalignment of the cervical spine. 3. Moderate to severe chronic right frontal and anterior right ethmoid sinus disease.
[2023-04-15] MEDS ORDERED: ACETAMINOPHEN TAB 325 MG TAB PO PRN (15:16)
[2023-04-15] MEDS ORDERED: ONDANSETRON 4 MG/2 ML VIAL IVP PRN (15:16)
[2023-04-15] MEDS ORDERED: NALOXONE 0.4 MG/ML 1 ML VIAL IV PRN (15:16)
--- NOTE | 2023-04-15 15:16 | ED ---
General Adult HPI - General Chief complaint: Arrhythmia/Palpitations Stated complaint: Chest pain Time Seen by Provider: 04/15/23 13:11 Source: patient, EMS, RN notes reviewed Mode of arrival: EMS Limitations: no limitations - History of Present Illness Initial comments: 32-year-old male with past medical history of alcohol abuse and polysubstance abuse presents emergency Department with a chief complaint palpitations. Hhjaleel reports the EMS from home. He reports twisting palpitations since not being on his Suboxone. He reports he has not taken his Suboxone for "a couple of days.". He also reports that he relapsed with alcohol and drank approximately three fourths of a pint of vodka. He does report a slight headache and a fall at ground level where he hit the back of his head approximately 6 weeks ago. He denies any vision changes or vision loss, nausea or vomiting, dizziness or lightheadedness, shortness of breath or chest pain, abdominal pain. - Related Data Home Medications Medication Instructions Recorded Confirmed Buprenorphine/Naloxone 8Mg/2Mg 1 film SL TID 04/15/23 04/15/23 [Suboxone 8-2Mg Film] Gabapentin 600 mg PO BID 04/15/23 04/15/23 Sertraline [Zoloft] 25 mg PO DAILY 04/15/23 04/15/23 hydrOXYzine pamoate [Vistaril] 25 mg PO TID PRN 04/15/23 04/15/23 Allergies Allergy/AdvReac Type Severity Reaction Status Date / Time No Known Allergies Allergy Verified 04/15/23 16:15 Review of Systems ROS Statement: Those systems with pertinent positive or pertinent negative responses have been documented in the HPI. ROS Other: All systems not noted in ROS Statement are negative. Past Medical History Past Medical History: Asthma Additional Past Medical History / Comment(s): heroine and cocaine use History of Any Multi-Drug Resistant Organisms: None Reported Past Surgical History: No Surgical Hx Reported, Orthopedic Surgery Additional Past Surgical History / Comment(s): r wrist. Past Anesthesia/Blood Transfusion Reactions: No Reported Reaction Past Psychological History: Anxiety, Depression Smoking Status: Current every day smoker, Vaper Past Alcohol Use History: Occasional Past Drug Use History: None Reported General Exam - General Exam Comments Initial Comments: General: Alert, in no acute distress Head: atraumatic normocephalic. Eyes PERRL, EOMI intact, mucous membranes moist Respiratory: Lungs clear to auscultation bilaterally Cardiovascular: Tachycardic Abdominal: Soft without guarding or rebound Extremities: Normal inspection with full range of motion and normal capillary refill Neuroogic: alert and oriented 3, CN II-XII intact, able to ambulate with steady gait Skin: warm dry and intact with normal color psychiatric: Responsive questions appropriately however will become tearful when asked specific questions about his alcohol use. Limitations: no limitations Course Vital Signs 04/15/23 04/15/23 13:12 15:35 Temperature 98.3 F Pulse Rate 131 H 115 H Respiratory 18 18 Rate Blood Pressure 139/88 133/94 O2 Sat by Pulse 98 98 Oximetry - Reevaluation(s) Reevaluation #1: 04/15/23 15:[address] Oneil agrees and accepts the patient for admission Reevaluation #2: 04/15/23 15:45 Primary RNEstefanía notified provider patient is using his Vape during the course of his evaluation. Patient's Vape was removed and disposed, patient is agreeable with the plan. EKG Findings - EKG Comments: EKG Findings:: I interpreted the following: EKG performed at 14:10. Rate 121 bpm, sinus tachycardia, DE interval 119, QRS 83, Qt/Qtc 288/360 Medical Decision Making - Medical Decision Making Was pt. sent in by a medical professional or institution (, RITO, PARCEL CONTRACTOR, urgent care, hospital, or prison...) When possible be specific @ -[No] Did you speak to anyone other than the patient for history (EMS, parent, family, police, friend...)? What history was obtained from this source @ -EMS Did you review nursing and triage notes (agree or disagree)? Why? @ -[I reviewed and agree with nursing and triage notes] Were old charts reviewed (outside hosp., previous admission, EMS record, old EKG, old radiological studies, urgent care reports/EKG's, prison records)? Report findings @ -[No old charts were reviewed] Differential Diagnosis (chest pain, altered mental status, abdominal pain women, abdominal pain men, vaginal bleeding, weakness, fever, dyspnea, syncope, headache, dizziness, GI bleed, back pain, seizure, CVA, palpatations, mental health, musculoskeletal)? @ -[not applicable] EKG interpreted by me (3pts min.). @ -[As above] X-rays interpreted by me (1pt min.). @ -[None done] CT interpreted by me (1pt min.). @ -CT head and neck does not reveal any intracranial process or fracture or dislocation. U/S interpreted by me (1pt. min.). @ -[None done] What testing was considered but not performed or refused? (CT, X-rays, U/S, labs)? Why? @ -[None] What meds were considered but not given or refused? Why? @ -[None] Did you discuss the management of the patient with other professionals (professionals i.e. , PA, PARCEL CONTRACTOR, lab, RT, psych nurse, bilingual social worker, type copyist, teacher, enforcement safety officer, case management coordinator)? Give summary @ -Case discussed with Dr. Oneil who agrees and accepts the patient for observation Was smoking cessation discussed for >3mins.? @ -[No] Was critical care preformed (if so, how long)? @ -[No] Were there social determinants of health that impacted care today? How? (Homelessness, low income, unemployed, alcoholism, drug addiction, transportation, low edu. Level, literacy, decrease access to med. care, long-term, rehab)? @ -[No] Was there de-escalation of care discussed even if they declined (Discuss DNR or withdrawal of care, Hospice)? DNR status @ -[No] What co-morbidities impacted this encounter? (DM, HTN, Smoking, COPD, CAD, Cancer, CVA, ARF, Chemo, Hep., AIDS, mental health diagnosis, sleep apnea, morbid obesity)? @ -[None] Was patient admitted / discharged? Hospital course, mention meds given and route, prescriptions, significant lab abnormalities, going to OR and other pertinent info. @ -Admission. This is a 32-year-old male with past medical history significant for alcohol use and polysubstance abuse who presents the emergency department with a chief complaint of alcohol intoxication. Patient had a thorough history and physical performed. Patient appears clinically intoxicated and will become tearful during hearts of the exam. Patient shows no signs of distress. His heart rate tachycardic low heart rate regular rate and rhythm, abdomen soft and nontender. Patient had laboratory studies which revealed EtOH 407, lactic acid 2.1. CT imaging is negative. I discussed the results in detail the patient is agreeable with the plan for admission. Case is discussed with Dr. Oneil who agrees and accepts the patient. Case is discussed with Dr. Landry, ED attending who agrees with POC Undiagnosed new problem with uncertain prognosis? @ -[No] Drug Therapy requiring intensive monitoring for toxicity (Heparin, Nitro, Insulin, Cardizem)? @ -[No] Were any procedures done? @ -[No] Diagnosis/symptom? @ -Alcohol intoxication Acute, or Chronic, or Acute on Chronic? @ -Acute Uncomplicated (without systemic symptoms) or Complicated (systemic symptoms)? @ -Uncomplicated Side effects of treatment? @ -[No] Exacerbation, Progression, or Severe Exacerbation? @ -[No] Poses a threat to life or bodily function? How? (Chest pain, USA, [place], pneumonia, PE, COPD, DKA, ARF, appy, cholecystitis, CVA, Diverticulitis, Homicidal, Suicidal, threat to staff... and all critical care pts) @ -yes - Lab Data Result diagrams: 04/15/23 13:43 04/15/23 13:43 Lab Results 04/15/23 04/15/23 04/15/23 Range/Units 13:43 13:43 13:43 WBC 6.1 (3.8-10.6) k/uL RBC 5.44 (4.30-5.90) m/uL Hgb 17.0 (13.0-17.5) gm/dL Hct 49.0 (39.0-53.0) % MCV 90.0 (80.0-100.0) fL MCH 31.3 (25.0-35.0) pg MCHC 34.7 (31.0-37.0) g/dL RDW 13.0 (11.5-15.5) % Plt Count 332 (150-450) k/uL MPV 7.4 Neutrophils % 69 % Lymphocytes % 23 % Monocytes % 4 % Eosinophils % 1 % Basophils % 0 % Neutrophils # 4.2 (1.3-7.7) k/uL Lymphocytes # 1.4 (1.0-4.8) k/uL Monocytes # 0.2 (0-1.0) k/uL Eosinophils # 0.0 (0-0.7) k/uL Basophils # 0.0 (0-0.2) k/uL Sodium 146 H (137-145) mmol/L Potassium 4.1 (3.5-5.1) mmol/L Chloride 104 (98-107) mmol/L Carbon Dioxide 23 (22-30) mmol/L Anion Gap 19 mmol/L BUN 7 L (9-20) mg/dL Creatinine 0.70 (0.66-1.25) mg/dL Est GFR (CKD-EPI)AfAm >90 (>60 ml/min/1.73 sqM) Est GFR (CKD-EPI)NonAf >90 (>60 ml/min/1.73 sqM) Glucose 114 H (74-99) mg/dL Plasma Lactic Acid Dg 3.1 H* (0.7-2.0) mmol/L Calcium 9.5 (8.4-10.2) mg/dL Magnesium 2.3 (1.6-2.3) mg/dL Total Bilirubin 0.5 (0.2-1.3) mg/dL AST 412 H (17-59) U/L ALT 344 H (4-49) U/L Alkaline Phosphatase 97 (38-126) U/L Troponin I (0.000-0.034) ng/mL Total Protein 8.7 H (6.3-8.2) g/dL Albumin 5.4 H (3.5-5.0) g/dL Serum Alcohol 407 H* mg/dL 04/15/23 Range/Units 13:43 WBC (3.8-10.6) k/uL RBC (4.30-5.90) m/uL Hgb (13.0-17.5) gm/dL Hct (39.0-53.0) % MCV (80.0-100.0) fL MCH (25.0-35.0) pg MCHC (31.0-37.0) g/dL RDW (11.5-15.5) % Plt Count (150-450) k/uL MPV Neutrophils % % Lymphocytes % % Monocytes % % Eosinophils % % Basophils % % Neutrophils # (1.3-7.7) k/uL Lymphocytes # (1.0-4.8) k/uL Monocytes # (0-1.0) k/uL Eosinophils # (0-0.7) k/uL Basophils # (0-0.2) k/uL Sodium (137-145) mmol/L Potassium (3.5-5.1) mmol/L Chloride (98-107) mmol/L Carbon Dioxide (22-30) mmol/L Anion Gap mmol/L BUN (9-20) mg/dL Creatinine (0.66-1.25) mg/dL Est GFR (CKD-EPI)AfAm (>60 ml/min/1.73 sqM) Est GFR (CKD-EPI)NonAf (>60 ml/min/1.73 sqM) Glucose (74-99) mg/dL Plasma Lactic Acid Dg (0.7-2.0) mmol/L Calcium (8.4-10.2) mg/dL Magnesium (1.6-2.3) mg/dL Total Bilirubin (0.2-1.3) mg/dL AST (17-59) U/L ALT (4-49) U/L Alkaline Phosphatase (38-126) U/L Troponin I <0.012 (0.000-0.034) ng/mL Total Protein (6.3-8.2) g/dL Albumin (3.5-5.0) g/dL Serum Alcohol mg/dL Disposition Clinical Impression: Alcoholic intoxication Disposition: ADMITTED IP TO THIS HOSP Condition: Fair Time of Disposition: 15:16
[2023-04-15] MEDS ORDERED: LORazepam 2 MG/ML INJ IV PRN ×2 (15:18)
[2023-04-15] MEDS ORDERED: THIAMINE 100 MG/ML 2 ML VIAL IM STA (15:18)
[2023-04-15] MEDS: SODIUM CHLORIDE 0.9% 1,000 ML IV SCH (16:15)
[2023-04-15] MEDS: LORazepam 2 MG/ML INJ IV PRN (21:48)
[2023-04-15] MEDS: NICOTINE 21MG/24HR PATCH TRANSDERM SCH (22:07)
[2023-04-15 22:31] VITALS: RESP 16
[2023-04-16] MEDS: LORazepam 2 MG/ML INJ IV PRN (01:27)
[2023-04-16 03:03] LABS: Basophils % (A) 0 %; Eosinophils # (A) 0.1 k/uL (0-0.7); Eosinophils % (A) 1 %; HCT 40.1 % (39.0-53.0); Lymphocytes # (A) 1.8 k/uL (1.0-4.8); Lymphocytes % (A) 26 %; MCH 31.7 pg (25.0-35.0); MCHC 34.6 g/dL (31.0-37.0); MCV 91.8 fL (80.0-100.0); Mean Platelet Volume 7.1; Monocytes # (A) 0.3 k/uL (0-1.0); Monocytes % (A) 4 %; Neutrophils # (A) 4.7 k/uL (1.3-7.7); Neutrophils % (A) 66 %; Platelet Count 232 k/uL (150-450); RBC 4.37 m/uL (4.30-5.90); RDW 12.8 % (11.5-15.5)
[2023-04-16 03:12] LABS: HGB 13.9 gm/dL (13.0-17.5)
[2023-04-16 03:33] LABS: African American GFR (CKD) >90 (>60 ml/min/1.73 sqM); Blood Urea Nitrogen 12 mg/dL (9-20); Calcium 8.5 mg/dL (8.4-10.2); Carbon Dioxide 23 mmol/L (22-30); Chloride 103 mmol/L (98-107); Glucose 122 mg/dL (74-99); Non-African American GFR(CKD) >90 (>60 ml/min/1.73 sqM)
[2023-04-16 03:46] LABS: Anion Gap 13 mmol/L; Potassium 3.4 mmol/L (3.5-5.1); Sodium 139 mmol/L (137-145)
[2023-04-16] MEDS: SODIUM CHLORIDE 0.9% 1,000 ML IV SCH ×2 (05:10→09:03)
[2023-04-16 08:43] VITALS: BP 140/83; PULSE 91; TEMP 98.9
[2023-04-16] MEDS: NICOTINE 21MG/24HR PATCH TRANSDERM SCH (08:58)
[2023-04-16] MEDS ORDERED: THIAMINE 100 MG TAB PO SCH (09:00)
[2023-04-16] MEDS ORDERED: NICOTINE 14MG/24HR PATCH TRANSDERM SCH (09:00)
[2023-04-16 09:24] LABS: Appearance,Urine Clear (Clear); Bilirubin,Urine Negative (Negative); Blood,Urine Negative (Negative); Color,Urine Yellow; Glucose,Urine (UA) Negative (Negative); Ketones,Urine 1+ (Negative); Leukocyte Esterase,Urine Negative (Negative); Nitrite,Urine Negative (Negative); PH, Urine 5.5 (5.0-8.0); Protein,Urine Trace (Negative); Specific Gravity,Urine 1.023 (1.001-1.035); Urobilinogen,Urine <2.0 mg/dL (<2.0)
[2023-04-16 09:35] LABS: Amphetamine Screen,Urine Not Detected (NotDetected); Barbiturate Screen,Urine Not Detected (NotDetected); Benzodiazepines Screen,Urine Detected (NotDetected); Cocaine Screen,Urine Not Detected (NotDetected); Methadone Screen, Urine Not Detected (NotDetected); Opiate Screen,Urine Not Detected (NotDetected); Oxycodone Screen, Urine Not Detected (NotDetected); Phencyclidine Screen,Urine Not Detected (NotDetected); Tricyclic Antidepressant,Urine Not Detected (NotDetected); Urn Cannabinoid Scrn Not Detected (NotDetected)
--- NOTE | 2023-04-16 22:32 | HP ---
HISTORY AND PHYSICAL CHIEF COMPLAINT: Acute alcohol intoxication. HISTORY OF PRESENT ILLNESS: This is another admission for this young man who came intoxicated. REVIEW OF SYSTEMS: He denied any chest pain, abdominal pain, hematemesis, melena, etc. Past medical history, family history, personal and social histories are all otherwise unremarkable and noncontributory. He is not allergic to any medication. MEDICATIONS: He has been on, 1. Suboxone. 2. Zoloft. 3. Vistaril. 4. Symbicort. Remainder of his history is unremarkable and noncontributory. PHYSICAL EXAMINATION: VITAL SIGNS: Normal. HEAD, EARS, EYES, NOSE, MOUTH AND THROAT: Normal. NECK: Neck veins are not distended. CHEST: Clear. CARDIAC: Demonstrated sinus rhythm and no murmurs or extra sounds. ABDOMEN: Soft, nontender. There is no visceromegaly. EXTREMITIES: Normal. NEUROLOGICAL: Intact. IMPRESSION: 1. Acute alcohol intoxication. 2. History of narcotic abuse. PLAN: 1. Bedrest. 2. IV fluids. 3. CIWA protocol. MMODL / IJN: [id number] /
--- NOTE | 2023-04-17 10:47 | DS ---
DISCHARGE SUMMARY CHIEF COMPLAINT: Acute alcohol intoxication. HISTORY OF PRESENT ILLNESS AND PHYSICAL EXAM: Details of this young man's history and physical can be found in the initial workup. LABORATORY STUDIES: While he is in a hospital, he had laboratory studies, details of which can be found in the laboratory section of his chart. COURSE IN HOSPITAL: After admission, he was placed on bedrest, started intravenous fluids by the following morning. He was awake and alert and no longer intoxicated or DTs. It is felt that he could return home and be followed up in the office in several days. FINAL DIAGNOSES: 1. Acute alcohol intoxication. 2. Chronic alcoholism. OPERATIONS: None. CONSULTATIONS: None. He is improved. MMODL / IJN: [id number] /
== END 2023-04-16 12:22 | disposition home or self-care (01) | DRG 773 ==
LOC: EC 13:08 → 6NMEDSUR 16:02 → OBSVTOIN 16:03 → 6NMEDSUR 16:08
PROVIDERS: ADMIT Family Medicine; ATTEND Family Medicine
DX: F10.229 Alcohol dependence with intoxication, unspecified (principal); Y90.8 Blood alcohol level of 240 mg/100 ml or more; F11.20 Opioid dependence, uncomplicated; Z79.51 Long term (current) use of inhaled steroids; Z79.899 Other long term (current) drug therapy; R00.0 Tachycardia, unspecified; Z28.310 Unvaccinated for COVID-19; F41.9 Anxiety disorder, unspecified; F32.A Depression, unspecified; Z28.21 Immunization not carried out because of patient refusal; F17.210 Nicotine dependence, cigarettes, uncomplicated; R51.9 Headache, unspecified; W19.XXXS Unspecified fall, sequela
CPT/HCPCS: 36415; 70450; 71046; 72125; 80048; 80053; 80306; 80320; 81003; 83605; 83735; 84484; 85025; 93005; 96361; 96374; 99285

== ENCOUNTER 2023-06-29 13:00 | Observation (INO) | payer OTHER ==
[2023-06-29 13:35] LABS: Basophils % (A) 1 %; Eosinophils % (A) 1 %; HCT 50.1 % (39.0-53.0); HGB 16.6 gm/dL (13.0-17.5); Lymphocytes # (A) 1.2 k/uL (1.0-4.8); Lymphocytes % (A) 17 %; MCH 31.2 pg (25.0-35.0); MCV 94.4 fL (80.0-100.0); Mean Platelet Volume 7.2; Monocytes # (A) 0.2 k/uL (0-1.0); Monocytes % (A) 3 %; Neutrophils # (A) 5.1 k/uL (1.3-7.7); Neutrophils % (A) 77 %; Platelet Count 274 k/uL (150-450); RBC 5.31 m/uL (4.30-5.90); RDW 13.1 % (11.5-15.5); WBC 6.6 k/uL (3.8-10.6)
[2023-06-29] MEDS: LORazepam 2 MG/ML INJ IV STA (13:40)
[2023-06-29] MEDS: THIAMINE 100 MG/ML 2 ML VIAL IM STA (13:42)
[2023-06-29] MEDS: SODIUM CHLORIDE 0.9% 1,000 ML IV STA (13:46)
[2023-06-29 13:52] LABS: ALT 301 U/L (4-49); AST 456 U/L (17-59); African American GFR (CKD) >90 (>60 ml/min/1.73 sqM); Albumin 5.4 g/dL (3.5-5.0); Alkaline Phosphatase 130 U/L (38-126); Amylase 66 U/L (30-110); Anion Gap 21 mmol/L; Blood Urea Nitrogen 10 mg/dL (9-20); Calcium 8.7 mg/dL (8.4-10.2); Carbon Dioxide 20 mmol/L (22-30); Chloride 105 mmol/L (98-107); Glucose 74 mg/dL (74-99); Lipase 71 U/L (23-300); Non-African American GFR(CKD) >90 (>60 ml/min/1.73 sqM); Potassium 4.1 mmol/L (3.5-5.1); Sodium 146 mmol/L (137-145); Total Bilirubin 0.7 mg/dL (0.2-1.3); Total Protein 8.2 g/dL (6.3-8.2)
[2023-06-29 14:02] LABS: Alcohol 352 mg/dL
[2023-06-29] MEDS: FLUORESCEIN STRIPS 1 MG STRIP LEFT EYE ONE (14:26)
[2023-06-29] MEDS ORDERED: NALOXONE 0.4 MG/ML 1 ML VIAL IV PRN (14:56)
--- NOTE | 2023-06-29 14:56 | ED ---
General Adult HPI - General Chief complaint: Alcohol Stated complaint: ETOH Time Seen by Provider: 06/29/23 13:15 Source: patient, EMS, RN notes reviewed, old records reviewed Mode of arrival: EMS - History of Present Illness Initial comments: Patient is a 32-year-old male who presents emergency department complaining of alcohol intoxication and mild withdrawals. Initially tried to go to [facility] who requested the patient be brought here for detox. Patient's alcohol level is 352. He has no other acute complaints at this time other than intermittent spotty vision on the medial aspect of his left eye. Had a prior to presentation but currently has none. Denies any eye pain or obvious injury. Presents for further evaluation at this time. Does have a history of alcohol withdrawals and DTs. - Related Data Home Medications Medication Instructions Recorded Confirmed Buprenorphine/Naloxone 8Mg/2Mg 1 film SL TID 04/15/23 04/15/23 [Suboxone 8-2Mg Film] Gabapentin 600 mg PO BID 04/15/23 04/15/23 Sertraline [Zoloft] 25 mg PO DAILY 04/15/23 04/15/23 hydrOXYzine pamoate [Vistaril] 25 mg PO TID PRN 04/15/23 04/15/23 Previous Rx's Medication Instructions Recorded Nicotine 21Mg/24Hr Patch [Habitrol] 1 patch TRANSDERM DAILY #30 patch 04/16/23 Thiamine [Vitamin B-1] 100 mg PO DAILY #60 tab 04/16/23 Allergies Allergy/AdvReac Type Severity Reaction Status Date / Time No Known Allergies Allergy Verified 06/29/23 13:08 Review of Systems ROS Statement: Those systems with pertinent positive or pertinent negative responses have been documented in the HPI. Review of Systems: CONST: Denies fever EYES: Denies blurry vision ENT: Denies nasal congestion C/V: Denies Chest pain RESP: Denies shortness of breath GI: Denies abdominal pain : Denies dysuria SKIN: Denies rash. MSK: Denies joint pain. NEURO: Denies headache ROS Other: All systems not noted in ROS Statement are negative. Past Medical History Past Medical History: Asthma, Seizure Disorder Additional Past Medical History / Comment(s): heroin and cocaine use, pt states he had "one seizure" in the past 2012 was not treated History of Any Multi-Drug Resistant Organisms: None Reported Past Surgical History: Orthopedic Surgery Additional Past Surgical History / Comment(s): rt wrist repair from dog bite. [place] teeth removal Past Anesthesia/Blood Transfusion Reactions: No Reported Reaction Additional Past Anesthesia/Blood Transfusion Reaction / Comment(s): pt states he woke up during wisdom tooth removing Past Psychological History: Anxiety, Depression Smoking Status: Current every day smoker, Vaper Past Alcohol Use History: Occasional Past Drug Use History: None Reported - Past Family History Father Family Medical History: No Reported History General Exam - General Exam Comments Initial Comments: General: Appears in mild withdrawals with tongue fasciculations, extremity tremors. HEAD: Normal with no signs of head trauma. EYES: PERRLA, EOMI, conjunctiva normal, no discharge. Pupils are 3 mm and equal bilaterally. Slit-lamp exam unremarkable. No evidence of intraocular foreign body. Staining with fluorescein strip negative for any obvious corneal abrasion. Visual acuity is 20/25 ENT: Hearing grossly intact, normal oropharynx. RESPIRATORY: Clear breath sounds bilaterally. No wheezes, rales, or rhonchi. C/V: Mild tachycardia. S1 and S2 auscultated, no edema, peripheral pulses 2+ and intact throughout ABD: Abd is soft, nontender, nondistended EXT: Normal range of motion, no obvious deformity SKIN: No rashes or lesions observed on exposed skin. NEURO: Alert and oriented x 4. Course Vital Signs 06/29/23 13:03 Temperature 97.7 F Pulse Rate 115 H Respiratory 18 Rate Blood Pressure 137/77 O2 Sat by Pulse 99 Oximetry Medical Decision Making - Medical Decision Making Was pt. sent in by a medical professional or institution (, PA, ARMY RANGER, urgent care, hospital, or fci...) When possible be specific @ -Sent from [facility] for evaluation for alcohol withdrawals Did you speak to anyone other than the patient for history (EMS, parent, family, police, friend...)? What history was obtained from this source @ -No Did you review nursing and triage notes (agree or disagree)? Why? @ -I reviewed and agree with nursing and triage notes Were old charts reviewed (outside hosp., previous admission, EMS record, old EKG, old radiological studies, urgent care reports/EKG's, fci records)? Report findings @ -No old charts were reviewed Differential Diagnosis (chest pain, altered mental status, abdominal pain women, abdominal pain men, vaginal bleeding, weakness, fever, dyspnea, syncope, headache, dizziness, GI bleed, back pain, seizure, CVA, palpatations, mental health, musculoskeletal)? @ -Alcohol withdrawals, dehydration, delirium tremens. This list is not all inclusive. EKG interpreted by me (3pts min.). @ -As above X-rays interpreted by me (1pt min.). @ -None done CT interpreted by me (1pt min.). @ -None done U/S interpreted by me (1pt. min.). @ -None done What testing was considered but not performed or refused? (CT, X-rays, U/S, labs)? Why? @ -None What meds were considered but not given or refused? Why? @ -None Did you discuss the management of the patient with other professionals (professionals i.e. , PA, AR[employer] RANGER, lab, RT, psych nurse, social media intern, automotive machinist apprentice, teacher, title officer, continuous pillowcase cutter)? Give summary @ -Discussed with Dr. Oneil who accepted the admission. Was smoking cessation discussed for >3mins.? @ -No Was critical care preformed (if so, how long)? @ -No Were there social determinants of health that impacted care today? How? (Homelessness, low income, unemployed, alcoholism, drug addiction, transportation, low edu. Level, literacy, decrease access to med. care, assisted, rehab)? @ -No Was there de-escalation of care discussed even if they declined (Discuss DNR or withdrawal of care, Hospice)? DNR status @ -No What co-morbidities impacted this encounter? (DM, HTN, Smoking, COPD, CAD, Can cer, CVA, ARF, Chemo, Hep., AIDS, mental health diagnosis, sleep apnea, morbid obesity)? @ -None Was patient admitted / discharged? Hospital course, mention meds given and route, prescriptions, significant lab abnormalities, going to OR and other pertinent info. @ -Patient presents for alcohol withdrawals. Does not plan on drinking again if he is discharged. [facility] will not take care of him and request that he detoxes here. He denies any acute complaints other than this intermittent b lurry vision/spotted vision in the left eye. Thorough eye exam performed here in the ER was unremarkable. He currently has no symptoms, and I recommended that he follow-up with Dr. Wallace which she was in agreement with as he does have prior history with him. As for the alcohol withdrawals, CIWA is low but he will be given a dose of Ativan. Patient's alcohol level is elevated to 352. Chronically elevated LFTs. I discussed results with the patient. At [facility] will not take him back and he does not plan on drinking any alcohol further, and has a history of delirium tremens and withdrawals I do want to admit him to the hospital. He was in agreement this plan. I spoke with his admitting physician, Dr. Oneil who accepted the admission. CIKS protocol ordered. Undiagnosed new problem with uncertain prognosis? @ -No Drug Therapy requiring intensive monitoring for toxicity (Heparin, Nitro, Insulin, Cardizem)? @ -No Were any procedures done? @ -No Diagnosis/symptom? @ -Alcohol withdrawal, alcohol intoxication Acute, or Chronic, or Acute on Chronic? @ -Acute Uncomplicated (without systemic symptoms) or Complicated (systemic symptoms)? @ -Complicated Side effects of treatment? @ -No Exacerbation, Progression, or Severe Exacerbation? @ -No Poses a threat to life or bodily function? How? (Chest pain, USA, [place], pneumonia, PE, COPD, DKA, ARF, appy, cholecystitis, CVA, Diverticulitis, Homicidal, Suicidal, threat to staff... and all critical care pts) @ -Yes - Lab Data Result diagrams: 06/29/23 13:28 06/29/23 13:28 Lab Results 06/29/23 06/29/23 Range/Units 13:28 13:28 WBC 6.6 (3.8-10.6) k/uL RBC 5.31 (4.30-5.90) m/uL Hgb 16.6 (13.0-17.5) gm/dL Hct 50.1 (39.0-53.0) % MCV 94.4 (80.0-100.0) fL MCH 31.2 (25.0-35.0) pg MCHC 33.0 (31.0-37.0) g/dL RDW 13.1 (11.5-15.5) % Plt Count 274 (150-450) k/uL MPV 7.2 Neutrophils % 77 % Lymphocytes % 17 % Monocytes % 3 % Eosinophils % 1 % Basophils % 1 % Neutrophils # 5.1 (1.3-7.7) k/uL Lymphocytes # 1.2 (1.0-4.8) k/uL Monocytes # 0.2 (0-1.0) k/uL Eosinophils # 0.0 (0-0.7) k/uL Basophils # 0.0 (0-0.2) k/uL Sodium 146 H (137-145) mmol/L Potassium 4.1 (3.5-5.1) mmol/L Chloride 105 (98-107) mmol/L Carbon Dioxide 20 L (22-30) mmol/L Anion Gap 21 mmol/L BUN 10 (9-20) mg/dL Creatinine 0.77 (0.66-1.25) mg/dL Est GFR (CKD-EPI)AfAm >90 (>60 ml/min/1.73 sqM) Est GFR (CKD-EPI)NonAf >90 (>60 ml/min/1.73 sqM) Glucose 74 (74-99) mg/dL Calcium 8.7 (8.4-10.2) mg/dL Total Bilirubin 0.7 (0.2-1.3) mg/dL AST 456 H (17-59) U/L ALT 301 H (4-49) U/L Alkaline Phosphatase 130 H (38-126) U/L Total Protein 8.2 (6.3-8.2) g/dL Albumin 5.4 H (3.5-5.0) g/dL Amylase 66 (30-110) U/L Lipase 71 (23-300) U/L Serum Alcohol 352 H* mg/dL - EKG Data -: EKG Interpreted by Me EKG Comments: 12-lead Electrocardiogram Interpretation Note EKG was reviewed and interpreted by myself. 12-lead ECG performed at 1345 is interpreted by me as revealing sinus tachycardia at a rate of 105 beats per minute. Right axis deviation. PA interval is 124 ms, QRS duration is 81 ms, QTc is 396 ms. Nonspecific T wave inversions in leads III and aVF.. There were no ST or T wave abnormalities to suggest myocardial ischemia or injury. R wave progression across the precordium was satisfactory. By my interpretation this EKG is non-diagnostic for acute ischemia. Disposition Clinical Impression: Alcohol withdrawal, Alcohol intoxication Disposition: ADMITTED IP TO THIS HOSP Condition: Stable Referrals: Ted Oneil MD [Primary Care Provider] - 1-2 days Time of Disposition: 14:41
[2023-06-29] MEDS: ONDANSETRON 4 MG/2 ML VIAL IVP STA (15:04)
[2023-06-29] MEDS: LORazepam 2 MG/ML INJ IV PRN (20:10)
[2023-06-30] MEDS: LORazepam 2 MG/ML INJ IV PRN ×2 (07:49→11:03)
[2023-06-30 09:40] LABS: Basophils # (A) 0.03 X 10*3/uL (0.00-0.10); Basophils % (A) 0.5 %; Eosinophils # (A) 0.04 X 10*3/uL (0.04-0.35); Eosinophils % (A) 0.7 %; HCT 42.8 % (39.6-50.0); HGB 14.3 g/dL (13.0-17.0); Lymphocytes # (A) 0.78 X 10*3/uL (0.90-5.00); Lymphocytes % (A) 13.9 %; MCH 30.8 pg (27.0-32.0); MCHC 33.4 g/dL (32.0-37.0); MCV 92.2 FL (80.0-97.0); Mean Platelet Volume 9.6 FL (9.5-12.2); Monocytes # (A) 0.41 X 10*3/uL (0.20-1.00); Monocytes % (A) 7.3 %; NRBC Per 100 WBC 0 X 10*3/uL (0.00-0.01); Neutrophils # (A) 4.34 X 10*3/uL (1.80-7.70); Neutrophils % (A) 77.4 %; Platelet Count 197 X 10*3/uL (140-440); RBC 4.64 X 10*6/uL (4.40-5.60); WBC 5.61 X 10*3/uL (4.50-10.00)
[2023-06-30 10:00] LABS: BUN/Creat Ratio 13.89 Ratio (12.00-20.00); Blood Urea Nitrogen 12.5 mg/dL (9.0-27.0); Chloride 99 mmol/L (96-109); Glucose 61 mg/dL (70-110); Potassium 4.4 mmol/L (3.5-5.5); Sodium 140 mmol/L (135-145)
[2023-06-30 10:01] LABS: Calcium 9.1 mg/dL (8.7-10.3); Carbon Dioxide 22.2 mmol/L (21.6-31.8)
[2023-06-30] MEDS: THIAMINE 100 MG TAB PO SCH (11:04)
[2023-06-30] MEDS: HALOPERIDOL LACTATE 5 MG/ML 1 ML VIAL IM PRN (12:13)
[2023-06-30] MEDS: ONDANSETRON 4 MG/2 ML VIAL IVP PRN (17:56)
--- NOTE | 2023-06-30 19:03 | HP ---
HISTORY AND PHYSICAL CONTINUATION I was interrupted by some type of a garbled recording. The patient was admitted to the hospital with diagnoses of: 1. Acute alcohol intoxication. 2. Chronic alcoholism. 3. Chronic substance abuse. 4. DT. PLAN: 1. Bedrest. 2. IV fluids. 3. CIWA protocol. 4. Frequent monitoring of his neurologic and psychiatric state. JAVIER / BASILIO: [id number] /
--- NOTE | 2023-06-30 21:04 | PN ---
PROGRESS NOTE DATE OF SERVICE: 06/29/2023 CHIEF COMPLAINT: Acute alcohol intoxication. HISTORY OF PRESENT ILLNESS: This gentleman is acutely intoxicated. He is not nauseated. He is not confused. He does not have tremors. PHYSICAL EXAMINATION: CHEST: Clear. CARDIAC: Normal. IMPRESSION: 1. Acute alcohol intoxication. 2. Impending delirium tremens. PLAN: CIWA protocol and IV fluids. MMNATASHAL / ILIANAN: [id number] /
[2023-07-01 07:47] VITALS: BP 121/79; PULSE 103; RESP 16; TEMP 98.2
--- NOTE | 2023-07-01 21:15 | PN ---
PROGRESS NOTE DATE OF SERVICE: 06/30/2023 CHIEF COMPLAINT: Acute alcohol intoxication and DTs. HISTORY OF PRESENT ILLNESS: This gentleman is still in DTs. He has had no seizure activity. PHYSICAL EXAMINATION: CHEST: Clear. CARDIAC: Normal. ABDOMEN: Soft, nontender. IMPRESSION: 1. DTs. 2. Acute alcohol intoxication. 3. Chronic alcoholism. PLAN: Haldol if his DTs cannot be controlled with the Ativan. MMODL / IJN: [id number] /
--- NOTE | 2023-07-01 22:10 | DS ---
DISCHARGE SUMMARY CHIEF COMPLAINT: Acute alcohol intoxication and DTs. HISTORY OF PRESENT ILLNESS AND PHYSICAL EXAM: Details of this man's history and physical can be found in the initial workup. LABORATORY STUDIES: While he is in the hospital, he had laboratory studies, details of which can be found in the laboratory section of his chart. COURSE IN THE HOSPITAL: After admission, he was placed on bedrest, started on intravenous fluids and CIWA protocol. He became quite agitated and required Haldol, but by the , he was doing much better. He still had a tachycardia and he was encouraged to stay, but he signed out AMA on the . FINAL DIAGNOSES: 1. Acute alcohol intoxication. 2. DTs. 3. Chronic alcoholism. 4. Narcotic abuse and addiction. OPERATIONS: None. CONSULTATIONS: None. He is improved. MMNATASHAL / ILIANAN: [id number] /
--- NOTE | 2023-07-02 07:36 | HP ---
HISTORY AND PHYSICAL CHIEF COMPLAINT: Acute alcohol intoxication and DTs. HISTORY OF PRESENT ILLNESS: This is another admission for this 32-year-old white male, who has a chronic history of alcohol and drug abuse. He has made sincere attempts to control his disease including inpatient care, etc., but without success. REVIEW OF SYSTEMS: He denies any headaches, chest pain, shortness of breath, abdominal pain, vomiting, melena, or hematochezia, etc. Past medical history, family history, and personal and social histories are all otherwise unremarkable and noncontributory and unchanged. DICTATION ENDS HERE MMODL / IJN: [id number] /
== END 2023-07-01 10:23 | disposition left against medical advice (07) ==
LOC: EC 13:00 → 6NMEDSUR 14:57
PROVIDERS: ADMIT Family Medicine; ATTEND Family Medicine
DX: F10.231 Alcohol dependence with withdrawal delirium (principal); F10.229 Alcohol dependence with intoxication, unspecified; E86.0 Dehydration; F11.20 Opioid dependence, uncomplicated; Y90.8 Blood alcohol level of 240 mg/100 ml or more; F17.290 Nicotine dependence, other tobacco product, uncomplicated; Z79.899 Other long term (current) drug therapy; Z53.29 Procedure and treatment not carried out because of patient's decision for other reasons
CPT/HCPCS: 96376 ×3; 96372 ×2; 82075; 96361; 96374; 96375; 99285; 36415; 93005; 80053; 80048; 82150; 83690; 85025 ×2; G0378 ×3; G0480; J2060 ×3; J1630; J3411; J2405 ×2; 80320

== ENCOUNTER 2023-08-20 12:26 | Emergency (ER) | payer OTHER ==
[2023-08-20 13:19] LABS: Basophils % (A) 1 %; Eosinophils # (A) 0.1 k/uL (0-0.7); Eosinophils % (A) 3 %; HCT 44.6 % (39.0-53.0); HGB 14.5 gm/dL (13.0-17.5); Lymphocytes # (A) 1.2 k/uL (1.0-4.8); Lymphocytes % (A) 23 %; MCH 31.8 pg (25.0-35.0); MCHC 32.5 g/dL (31.0-37.0); MCV 97.8 fL (80.0-100.0); Mean Platelet Volume 7.5; Monocytes # (A) 0.5 k/uL (0-1.0); Monocytes % (A) 9 %; Neutrophils # (A) 3.1 k/uL (1.3-7.7); Neutrophils % (A) 61 %; Platelet Count 268 k/uL (150-450); RBC 4.56 m/uL (4.30-5.90)
[2023-08-20 13:29] VITALS: TEMP 98.4
[2023-08-20 13:31] LABS: INR 0.9 (<1.2); Prothrombin Time 9.9 sec (10.0-12.5)
[2023-08-20 13:33] LABS: ALT 147 U/L (4-49); AST 94 U/L (17-59); African American GFR (CKD) >90 (>60 ml/min/1.73 sqM); Albumin 3.9 g/dL (3.5-5.0); Alkaline Phosphatase 84 U/L (38-126); Anion Gap 5 mmol/L; Blood Urea Nitrogen 11 mg/dL (9-20); Calcium 8.9 mg/dL (8.4-10.2); Carbon Dioxide 27 mmol/L (22-30); Chloride 107 mmol/L (98-107); Glucose 116 mg/dL (74-99); Magnesium 2.2 mg/dL (1.6-2.3); Non-African American GFR(CKD) >90 (>60 ml/min/1.73 sqM); Potassium 3.4 mmol/L (3.5-5.1); Sodium 139 mmol/L (137-145); Total Bilirubin 0.6 mg/dL (0.2-1.3); Total Protein 6.5 g/dL (6.3-8.2)
--- NOTE | 2023-08-20 14:01 | ED ---
General Adult HPI - General Chief complaint: Arrhythmia/Palpitations Stated complaint: Palpitations Time Seen by Provider: 08/20/23 13:44 Source: patient, RN notes reviewed Mode of arrival: ambulatory Limitations: no limitations - History of Present Illness Initial comments: Patient is a 33-year-old male present to the emergency department with concerns with palpitations. Symptoms have been occurring for the past couple weeks. Patient feels lightheaded followed by palpitations followed by fatigue. Patient states she is having episodes around 3 times per day. Patient states episodes last around 10 seconds. Currently patient is symptom-free. No chest pain - Related Data Home Medications Medication Instructions Recorded Confirmed Sertraline [Zoloft] 25 mg PO HS 04/15/23 06/29/23 Albuterol Inhaler [Ventolin Hfa 1 - 2 puff INHALATION RT-Q6H PRN 06/29/23 06/29/23 Inhaler] Budesonide/Formoterol Fumarate 2 puff INHALATION RT-BID 06/29/23 06/29/23 [Symbicort 160-4.5 Mcg Inhaler] Allergies Allergy/AdvReac Type Severity Reaction Status Date / Time No Known Allergies Allergy Verified 06/29/23 15:18 Review of Systems ROS Statement: Those systems with pertinent positive or pertinent negative responses have been documented in the HPI. ROS Other: All systems not noted in ROS Statement are negative. Constitutional: Denies: fever Eyes: Denies: eye pain ENT: Denies: ear pain Respiratory: Denies: cough Cardiovascular: Reports: as per HPI, palpitations. Denies: chest pain Endocrine: Denies: fatigue Gastrointestinal: Denies: abdominal pain Neurological: Denies: weakness Past Medical History Past Medical History: Asthma, Seizure Disorder Additional Past Medical History / Comment(s): heroin and cocaine use, pt states he had "one seizure" in the past 2012 was not treated History of Any Multi-Drug Resistant Organisms: None Reported Past Surgical History: Orthopedic Surgery Additional Past Surgical History / Comment(s): rt wrist repair from dog bite. [place] teeth removal Past Anesthesia/Blood Transfusion Reactions: No Reported Reaction Additional Past Anesthesia/Blood Transfusion Reaction / Comment(s): pt states he woke up during wisdom tooth removing Past Psychological History: Anxiety, Depression Smoking Status: Current every day smoker, Vaper Past Alcohol Use History: Heavy Past Drug Use History: None Reported - Past Family History Father Family Medical History: No Reported History General Exam Limitations: no limitations General appearance: alert Head exam: Present: normocephalic Eye exam: Present: normal appearance Neck exam: Present: normal inspection Respiratory exam: Present: normal lung sounds bilaterally Cardiovascular Exam: Present: regular rate, normal rhythm, normal heart sounds. Absent: irregular rhythm Expanded Peripheral pulses: 2+: Radial (R), Radial (L), Posterior Tibialis (R), Posterior Tibialis (L) GI/Abdominal exam: Present: soft. Absent: tenderness Extremities exam: Present: normal inspection. Absent: pedal edema, calf tender ness Neurological exam: Present: alert. Absent: motor sensory deficit Psychiatric exam: Present: normal affect, normal mood Skin exam: Present: normal color Course Vital Signs 08/20/23 12:50 Temperature 98.4 F Pulse Rate 91 Respiratory 20 Rate Blood Pressure 164/77 O2 Sat by Pulse 98 Oximetry EKG Findings - EKG Results: EKG: interpreted by ERMD ( nonspecific T waves), sinus rhythm, normal axis, normal QRS Medical Decision Making - Medical Decision Making Was pt. sent in by a medical professional or institution (, PA, BAILER TENDERS SUPERVISOR, urgent c are, hospital, or custodial...) When possible be specific @ -No Did you speak to anyone other than the patient for history (EMS, parent, family, police, friend...)? What history was obtained from this source @ -No Did you review nursing and triage notes (agree or disagree)? Why? @ -I reviewed and agree with nursing and triage notes Were old charts reviewed (outside hosp., previous admission, EMS record, old EKG, old radiological studies, urgent care reports/EKG's, custodial records)? Report findings @ -No old charts were reviewed Differential Diagnosis (chest pain, altered mental status, abdominal pain women, abdominal pain men, vaginal bleeding, weakness, fever, dyspnea, syncope, headache, dizziness, GI bleed, back pain, seizure, CVA, palpatations, mental health, musculoskeletal)? @ -MDM differential EKG interpreted by me (3pts min.). @ -As above X-rays interpreted by me (1pt min.). @ -Chest x-ray shows no acute process CT interpreted by me (1pt min.). @ -None done U/S interpreted by me (1pt. min.). @ -None done What testing was considered but not performed or refused? (CT, X-rays, U/S, labs)? Why? @ -None What meds were considered but not given or refused? Why? @ -None Did you discuss the management of the patient with other professionals (professionals i.e. , PA, BAILER TENDERS SUPERVISOR, lab, RT, psych nurse, social media project manager, sprinkler inspector, teacher, air support control officer, shelter case manager)? Give summary @ -No Was smoking cessation discussed for >3mins.? @ -No Was critical care preformed (if so, how long)? @ -No Were there social determinants of health that impacted care today? How? ( Homelessness, low income, unemployed, alcoholism, drug addiction, transportation, low edu. Level, literacy, decrease access to med. care, fpc, rehab)? @ -No Was there de-escalation of care discussed even if they declined (Discuss DNR or withdrawal of care, Hospice)? DNR status @ -No What co-morbidities impacted this encounter? (DM, HTN, Smoking, COPD, CAD, Cancer, CVA, ARF, Chemo, Hep., AIDS, mental health diagnosis, sleep apnea, morbid obesity)? @ -None Was patient admitted / discharged? Hospital course, mention meds given and route, prescriptions, significant lab abnormalities, going to OR and other pertinent info. @ -Patient reevaluated and resting comfortably in bed. Patient remains symptom-free. Patient is updated on results and need for follow-up. Undiagnosed new problem with uncertain prognosis? @ -No Drug Therapy requiring intensive monitoring for toxicity (Heparin, Nitro, Insulin, Cardizem)? @ -No Were any procedures done? @ -No Diagnosis/symptom? @ -Palpitation Acute, or Chronic, or Acute on Chronic? @ -Acute Uncomplicated (without systemic symptoms) or Complicated (systemic symptoms)? @ -Default Side effects of treatment? @ -No Exacerbation, Progression, or Severe Exacerbation? @ -No Poses a threat to life or bodily function? How? (Chest pain, [place], [place], pneumonia, PE, COPD, DKA, ARF, appy, cholecystitis, CVA, Diverticulitis, Homicidal, Suicidal, threat to staff... and all critical care pts) @ -No - Lab Data Result diagrams: 08/20/23 13:14 08/20/23 13:14 Lab Results 08/20/23 08/20/23 08/20/23 Range/Units 13:14 13:14 13:14 WBC 5.0 (3.8-10.6) k/uL RBC 4.56 (4.30-5.90) m/uL Hgb 14.5 (13.0-17.5) gm/dL Hct 44.6 (39.0-53.0) % MCV 97.8 (80.0-100.0) fL MCH 31.8 (25.0-35.0) pg MCHC 32.5 (31.0-37.0) g/dL RDW 14.0 (11.5-15.5) % Plt Count 268 (150-450) k/uL MPV 7.5 Neutrophils % 61 % Lymphocytes % 23 % Monocytes % 9 % Eosinophils % 3 % Basophils % 1 % Neutrophils # 3.1 (1.3-7.7) k/uL Lymphocytes # 1.2 (1.0-4.8) k/uL Monocytes # 0.5 (0-1.0) k/uL Eosinophils # 0.1 (0-0.7) k/uL Basophils # 0.0 (0-0.2) k/uL PT 9.9 L (10.0-12.5) sec INR 0.9 (<1.2) APTT 23.0 (22.0-30.0) sec Sodium 139 (137-145) mmol/L Potassium 3.4 L (3.5-5.1) mmol/L Chloride 107 (98-107) mmol/L Carbon Dioxide 27 (22-30) mmol/L Anion Gap 5 mmol/L BUN 11 (9-20) mg/dL Creatinine 0.74 (0.66-1.25) mg/dL Est GFR (CKD-EPI)AfAm >90 (>60 ml/min/1.73 sqM) Est GFR (CKD-EPI)NonAf >90 (>60 ml/min/1.73 sqM) Glucose 116 H (74-99) mg/dL Calcium 8.9 (8.4-10.2) mg/dL Magnesium 2.2 (1.6-2.3) mg/dL Total Bilirubin 0.6 (0.2-1.3) mg/dL AST 94 H (17-59) U/L ALT 147 H (4-49) U/L Alkaline Phosphatase 84 (38-126) U/L Troponin I (0.000-0.034) ng/mL Total Protein 6.5 (6.3-8.2) g/dL Albumin 3.9 (3.5-5.0) g/dL TSH 2.230 (0.465-4.680) mIU/L 08/20/23 Range/Units 13:14 WBC (3.8-10.6) k/uL RBC (4.30-5.90) m/uL Hgb (13.0-17.5) gm/dL Hct (39.0-53.0) % MCV (80.0-100.0) fL MCH (25.0-35.0) pg MCHC (31.0-37.0) g/dL RDW (11.5-15.5) % Plt Count (150-450) k/uL MPV Neutrophils % % Lymphocytes % % Monocytes % % Eosinophils % % Basophils % % Neutrophils # (1.3-7.7) k/uL Lymphocytes # (1.0-4.8) k/uL Monocytes # (0-1.0) k/uL Eosinophils # (0-0.7) k/uL Basophils # (0-0.2) k/uL PT (10.0-12.5) sec INR (<1.2) APTT (22.0-30.0) sec Sodium (137-145) mmol/L Potassium (3.5-5.1) mmol/L Chloride (98-107) mmol/L Carbon Dioxide (22-30) mmol/L Anion Gap mmol/L BUN (9-20) mg/dL Creatinine (0.66-1.25) mg/dL Est GFR (CKD-EPI)AfAm (>60 ml/min/1.73 sqM) Est GFR (CKD-EPI)NonAf (>60 ml/min/1.73 sqM) Glucose (74-99) mg/dL Calcium (8.4-10.2) mg/dL Magnesium (1.6-2.3) mg/dL Total Bilirubin (0.2-1.3) mg/dL AST (17-59) U/L ALT (4-49) U/L Alkaline Phosphatase (38-126) U/L Troponin I <0.012 (0.000-0.034) ng/mL Total Protein (6.3-8.2) g/dL Albumin (3.5-5.0) g/dL TSH (0.465-4.680) mIU/L Disposition Clinical Impression: Palpitations Disposition: HOME SELF-CARE Condition: Stable Instructions (If sedation given, give patient instructions): Heart Palpitations (ED) Additional Instructions: Please do follow-up with your primary care physician in the next couple of days for recheck. Consider Holter monitor. Consider echo. Return for increased heart rate, chest pain, difficulty breathing, passing out, worsening symptoms or other concerns. Is patient prescribed a controlled substance at d/c from ED?: No Referrals: Ted Oneil MD [Primary Care Provider] - 1-2 days Time of Disposition: 14:28
--- NOTE | 2023-08-20 14:50 | XR ---
EXAMINATION TYPE: XR chest 2V DATE OF EXAM: 08/20/2023 2:12 PM CLINICAL INDICATION:Male, 33 years old with history of dysrhythmia; COMPARISON: Chest radiographs from 04/15/2023 TECHNIQUE: XR chest 2V Frontal and lateral views of the chest. FINDINGS: Lungs/Pleura: There is no evidence of pleural effusion, focal consolidation, or pneumothorax. Pulmonary vascularity: Unremarkable. Heart/mediastinum: Cardiomediastinal silhouette is unremarkable. Musculoskeletal: No acute osseous pathology. IMPRESSION: No acute cardiopulmonary disease/process.
[2023-08-20 15:04] VITALS: BP 118/76; PULSE 76; RESP 16
== END 2023-08-20 14:54 | disposition home or self-care (01) ==
LOC: EC 12:26
DX: R00.2 Palpitations (principal); F17.290 Nicotine dependence, other tobacco product, uncomplicated
CPT/HCPCS: 36415; 71046; 80053; 83735; 84443; 84484; 85025; 85610; 85730; 93005; 99285

== ENCOUNTER 2023-08-31 11:43 | Emergency (ER) | payer OTHER ==
[2023-08-31 12:02] VITALS: RESP 18
--- NOTE | 2023-08-31 12:29 | ED ---
URI HPI - General Chief Complaint: Upper Respiratory Infection Stated Complaint: Abn labs Time Seen by Provider: 08/31/23 12:27 Source: patient, RN notes reviewed Mode of arrival: ambulatory Limitations: no limitations - History of Present Illness Initial Comments: 33-year-old male presenting with fever x 1 day. States he has had subjective fever and chills for the past day with cough, headaches, nasal congestion, and neck stiffness. Reports he was sent by his PCP to be evaluated for meningitis. Denies mental status change. Reports that the neck pain feels as though he strained his neck at the gym. Denies shooting pain down his spine, numbness or tingling in any of the extremities. Last Motrin was 7 AM this morning. - Related Data Home Medications Medication Instructions Recorded Confirmed Sertraline [Zoloft] 25 mg PO DAILY 04/15/23 08/31/23 Albuterol Inhaler [Ventolin Hfa 1 - 2 puff INHALATION RT-Q6H PRN 06/29/23 08/31/23 Inhaler] Budesonide/Formoterol Fumarate 2 puff INHALATION RT-BID 08/31/23 08/31/23 [Symbicort 80-4.5 Mcg Inhaler] Buprenorphine HCl/Naloxone HCl 1 film SL BID 08/31/23 08/31/23 [Suboxone 8 mg-2 mg Sl Film] Daridorexant HCl [Quviviq] 25 mg PO HS PRN 08/31/23 08/31/23 Ergocalciferol [Vitamin D2 (1250 1,250 mcg PO Q30D 08/31/23 08/31/23 Mcg = 72922 Iu)] Gabapentin 600 mg PO BID 08/31/23 08/31/23 hydrOXYzine pamoate [Vistaril] 25 mg PO TID 08/31/23 08/31/23 valACYclovir HCL [Valtrex] 500 mg PO BID PRN 08/31/23 08/31/23 Allergies Allergy/AdvReac Type Severity Reaction Status Date / Time No Known Allergies Allergy Verified 08/31/23 12:28 Review of Systems ROS Statement: Those systems with pertinent positive or pertinent negative responses have been documented in the HPI. ROS Other: All systems not noted in ROS Statement are negative. Past Medical History Past Medical History: Asthma, Seizure Disorder Additional Past Medical History / Comment(s): heroin and cocaine use, pt states he had "one seizure" in the past 2013 was not treated History of Any Multi-Drug Resistant Organisms: None Reported Past Surgical History: Orthopedic Surgery Additional Past Surgical History / Comment(s): rt wrist repair from dog bite. [place] teeth removal Past Anesthesia/Blood Transfusion Reactions: No Reported Reaction Additional Past Anesthesia/Blood Transfusion Reaction / Comment(s): pt states he woke up during wisdom tooth removing Past Psychological History: Anxiety, Depression Smoking Status: Current every day smoker, Vaper Past Alcohol Use History: Heavy Past Drug Use History: None Reported - Past Family History Father Family Medical History: No Reported History General Exam - General Exam Comments Initial Comments: Visual Physical Exam Vital signs reviewed General: Well-appearing, nontoxic, no acute distress. Head: Normocephalic, atraumatic Eyes: PERRLA, EOMI ENT: Airway patent Chest: Nonlabored breathing Skin: No visual rash, normal skin tone Neuro: Alert and oriented 3 Musculoskeletal: No gross abnormalities Limitations: no limitations General appearance: alert, in no apparent distress Head exam: Present: atraumatic, normocephalic, normal inspection Eye exam: Present: normal appearance, PERRL, EOMI. Absent: scleral icterus, conjunctival injection, periorbital swelling ENT exam: Present: normal exam, mucous membranes moist Neck exam: Present: normal inspection, full ROM, other (Negative Kernig's and Brudzinski's). Absent: tenderness, meningismus, lymphadenopathy Respiratory exam: Present: normal lung sounds bilaterally. Absent: respiratory distress, wheezes, rales, rhonchi, stridor Cardiovascular Exam: Present: regular rate, normal rhythm, normal heart sounds. Absent: systolic murmur, diastolic murmur, rubs, gallop, clicks GI/Abdominal exam: Present: soft, normal bowel sounds. Absent: distended, tenderness, guarding, rebound, rigid Extremities exam: Present: normal inspection, full ROM, normal capillary refill. Absent: tenderness, pedal edema, joint swelling, calf tenderness Back exam: Present: normal inspection Neurological exam: Present: alert, oriented X3, CN II-XII intact Psychiatric exam: Present: normal affect, normal mood Skin exam: Present: warm, dry, intact, normal color. Absent: rash Course Vital Signs 08/31/23 08/31/23 08/31/23 11:44 13:50 15:52 Temperature 98.7 F 98.2 F Pulse Rate 107 H 83 Respiratory 18 18 18 Rate Blood Pressure 136/84 120/72 O2 Sat by Pulse 99 100 Oximetry Medical Decision Making - Medical Decision Making I completed the quick note portion of this chart signed Damaris Mcclain PA-C was pt. sent in by a medical professional or institution (, RITO, GANG PUNCH OPERATOR, urgent care, hospital, or snf...) When possible be specific @ -Instructed by PCP yesterday to come to ER for evaluation of meningitis Did you speak to anyone other than the patient for history (EMS, parent, family, police, friend...)? What history was obtained from this source @ -[No] Did you review nursing and triage notes (agree or disagree)? Why? @ -[I reviewed and agree with nursing and triage notes] Were old charts reviewed (outside hosp., previous admission, EMS record, old EKG, old radiological studies, urgent care reports/EKG's, snf records)? Report findings @ -[No old charts were reviewed] Differential Diagnosis (chest pain, altered mental status, abdominal pain women, abdominal pain men, vaginal bleeding, weakness, fever, dyspnea, syncope, headache, dizziness, GI bleed, back pain, seizure, CVA, palpatations, mental health, musculoskeletal)? @ -Differential Fever: Pneumonia, viral URI, endocarditis, myocarditis, pericarditis, otitis, sinusitis, peritonsillar Abscess, retropharyngeal Abscess, epiglottitis, peritonitis, appendicitis, Michelle cystitis, diverticulitis, hepatitis, colitis, UTI, PID, TOA, pyelonephritis, prostatitis, epididymitis, meningitis, encephali tis, pulmonary embolism, CVA, thyroid storm, pancreatitis, adrenal crisis, cavernous sinus thrombosis, this is not meant to be an all-inclusive list. EKG interpreted by me (3pts min.). @ -None X-rays interpreted by me (1pt min.). @ -Chest x-ray reveals no acute process CT interpreted by me (1pt min.). @ -[None done] U/S interpreted by me (1pt. min.). @ -[None done] What testing was considered but not performed or refused? (CT, X-rays, U/S, labs)? Why? @ -Lumbar puncture was not performed due to patient afebrile, negative Kernig's and Bruzinski's, all lab work unremarkable, patient not showing any signs of meningitis What meds were considered but not given or refused? Why? @ -[None] Did you discuss the management of the patient with other professionals (professionals i.e. DrOsmel, PA, GANG PUNCH OPERATOR, lab, RT, psych nurse, web content & social media manager, loan services professional, teacher, business services officer, case mgr)? Give summary @ -[No] Was smoking cessation discussed for >3mins.? @ -[No] Was critical care preformed (if so, how long)? @ -[No] Were there social determinants of health that impacted care today? How? (Homelessness, low income, unemployed, alcoholism, drug addiction, transportation, low edu. Level, literacy, decrease access to med. care, group home, rehab)? @ -[No] Was there de-escalation of care discussed even if they declined (Discuss DNR or withdrawal of care, Hospice)? DNR status @ -[No] What co-morbidities impacted this encounter? (DM, HTN, Smoking, COPD, CAD, Cancer, CVA, ARF, Chemo, Hep., AIDS, mental health diagnosis, sleep apnea, morbid obesity)? @ -[None] Was patient admitted / discharged? Hospital course, mention meds given and route, prescriptions, significant lab abnormalities, going to OR and other pertinent info. @ -Patient was discharged. Patient was seen and evaluated for subjective fever for 1 day with cough and nasal congestion. Patient is afebrile, her vital signs unremarkable. Last Motrin at 7 AM. Physical examination is unremarkable, negative Kernig's and Bruzinski's. Lab work unremarkable. Rapid flu, COVID and RSV negative. Chest x-ray unremarkable. Discussed with patient that there are no signs of meningitis at this time. Discussed diagnosis of viral URI with patient. Patient is tolerating orals well. Strict return/alarm symptoms discussed with patient and patient demonstrates understanding and agrees with plan. Patient discharged in stable condition. Case discussed with Dr. Alves. Undiagnosed new problem with uncertain prognosis? @ -[No] Drug Therapy requiring intensive monitoring for toxicity (Heparin, Nitro, Insulin, Cardizem)? @ -[No] Were any procedures done? @ -[No] Diagnosis/symptom? @ -Viral URI Acute, or Chronic, or Acute on Chronic? @ -Acute Uncomplicated (without systemic symptoms) or Complicated (systemic symptoms)? @ -Uncomplicated Side effects of treatment? @ -[No] Exacerbation, Progression, or Severe Exacerbation? @ -[No] Poses a threat to life or bodily function? How? (Chest pain, [place], [place], pneumonia, PE, COPD, DKA, ARF, appy, cholecystitis, CVA, Diverticulitis, Homicidal, Suicidal, threat to staff... and all critical care pts) @ -[No] - Lab Data Result diagrams: 08/31/23 13:29 08/31/23 13:29 Lab Results 08/31/23 08/31/23 08/31/23 Range/Units 13:29 13:29 13:29 WBC 6.9 (3.8-10.6) k/uL RBC 4.91 (4.30-5.90) m/uL Hgb 15.3 (13.0-17.5) gm/dL Hct 47.9 (39.0-53.0) % MCV 97.5 (80.0-100.0) fL MCH 31.0 (25.0-35.0) pg MCHC 31.8 (31.0-37.0) g/dL RDW 13.4 (11.5-15.5) % Plt Count 313 (150-450) k/uL MPV 7.2 Neutrophils % 70 % Lymphocytes % 15 % Monocytes % 8 % Eosinophils % 3 % Basophils % 1 % Neutrophils # 4.8 (1.3-7.7) k/uL Lymphocytes # 1.0 (1.0-4.8) k/uL Monocytes # 0.6 (0-1.0) k/uL Eosinophils # 0.2 (0-0.7) k/uL Basophils # 0.0 (0-0.2) k/uL Sodium 138 (137-145) mmol/L Potassium 4.7 (3.5-5.1) mmol/L Chloride 101 (98-107) mmol/L Carbon Dioxide 33 H (22-30) mmol/L Anion Gap 4 mmol/L BUN 10 (9-20) mg/dL Creatinine 0.94 (0.66-1.25) mg/dL Est GFR (CKD-EPI)AfAm >90 (>60 ml/min/1.73 sqM) Est GFR (CKD-EPI)NonAf >90 (>60 ml/min/1.73 sqM) Glucose 69 L (74-99) mg/dL Calcium 8.8 (8.4-10.2) mg/dL Total Bilirubin 0.4 (0.2-1.3) mg/dL AST 446 H (17-59) U/L ALT 77 H (4-49) U/L Alkaline Phosphatase 55 (38-126) U/L Total Protein 6.3 (6.3-8.2) g/dL Albumin 3.8 (3.5-5.0) g/dL Influenza Type A (PCR) Not Detected (Not Detectd) Influenza Type B (PCR) Not Detected (Not Detectd) RSV (PCR) Not Detected (Not Detectd) SARS-CoV-2 (PCR) Not Detected (Not Detectd) Disposition Clinical Impression: Viral upper respiratory infection Disposition: HOME SELF-CARE Condition: Stable Instructions (If sedation given, give patient instructions): Upper Respiratory Infection (ED) Additional Instructions: Please return to the Emergency Department if symptoms worsen or any other concerns. Is patient prescribed a controlled substance at d/c from ED?: No Referrals: Ted Oneil MD [Primary Care Provider] - 1-2 days Time of Disposition: 15:10
[2023-08-31 13:52] LABS: Basophils % (A) 1 %; Eosinophils # (A) 0.2 k/uL (0-0.7); Eosinophils % (A) 3 %; HCT 47.9 % (39.0-53.0); HGB 15.3 gm/dL (13.0-17.5); Lymphocytes % (A) 15 %; MCHC 31.8 g/dL (31.0-37.0); MCV 97.5 fL (80.0-100.0); Mean Platelet Volume 7.2; Monocytes # (A) 0.6 k/uL (0-1.0); Monocytes % (A) 8 %; Neutrophils # (A) 4.8 k/uL (1.3-7.7); Neutrophils % (A) 70 %; Platelet Count 313 k/uL (150-450); RBC 4.91 m/uL (4.30-5.90); RDW 13.4 % (11.5-15.5); WBC 6.9 k/uL (3.8-10.6)
--- NOTE | 2023-08-31 13:55 | XR ---
EXAMINATION TYPE: XR chest 2V DATE OF EXAM: 08/31/2023 COMPARISON: 08/20/2023 INDICATION: Fever, cough TECHNIQUE: Frontal and lateral views of the chest are obtained. FINDINGS: The heart size is normal. The pulmonary vasculature is normal. The lungs are clear. IMPRESSION: 1. No acute pulmonary process.
[2023-08-31 14:02] LABS: ALT 77 U/L (4-49); AST 446 U/L (17-59); African American GFR (CKD) >90 (>60 ml/min/1.73 sqM); Albumin 3.8 g/dL (3.5-5.0); Alkaline Phosphatase 55 U/L (38-126); Anion Gap 4 mmol/L; Blood Urea Nitrogen 10 mg/dL (9-20); Calcium 8.8 mg/dL (8.4-10.2); Carbon Dioxide 33 mmol/L (22-30); Chloride 101 mmol/L (98-107); Glucose 69 mg/dL (74-99); Non-African American GFR(CKD) >90 (>60 ml/min/1.73 sqM); Potassium 4.7 mmol/L (3.5-5.1); Sodium 138 mmol/L (137-145); Total Bilirubin 0.4 mg/dL (0.2-1.3); Total Protein 6.3 g/dL (6.3-8.2)
[2023-08-31 15:55] VITALS: BP 120/72; PULSE 83; TEMP 98.2
== END 2023-08-31 15:57 | disposition home or self-care (01) ==
LOC: EC 11:43
DX: J06.9 Acute upper respiratory infection, unspecified (principal); F17.290 Nicotine dependence, other tobacco product, uncomplicated
CPT/HCPCS: 36415; 71046; 80053; 85025; 87636; 99283

== ENCOUNTER → 2023-09-12 | Outpatient (CLI) | payer OTHER ==
--- NOTE | 2023-10-05 18:16 | P.CEMON ---
3 DAY EVENT MONITOR REPORT: INDICATION: Palpitations. START DATE: 09/12/2023 END DATE: 09/15/2023 Patient wore the monitor for 2 days 15 hours FINDINGS: Overall [good] quality study. Patient's baseline rhythm was [normal sinus rhythm]. Maximum heart rate 153 bpm Minimum heart rate 52 bpm during nighttime Average heart rate 92 bpm. Patient had total 31% tachycardia burden. Patient had less than 1% bradycardia burden. There was no significant PAC or PVCs noted. There were no observed atrial fibrillation, atrial flutter or sustained ventricular rhythm. There were no observed sinus pauses which were more than 2 second long. Patient symptoms correlation: Patient reported 7 events palpitations and lightheadedness which corresponded to normal sinus rhythm Conclusion Overall nonrevealing 3-day event monitor with no significant arrhythmias or ectopic beats Gaudencio Reyes MD, FACC, RPVI Thank you for allowing [facility] to participate in this patient's care. Feel free to reach out in case of any followup questions.
--- NOTE | 2023-10-10 11:20 | HM ---
3 DAY EVENT MONITOR REPORT: INDICATION: Palpitations. START DATE: 09/12/2023 END DATE: 09/15/2023 Patient wore the monitor for 2 days 15 hours FINDINGS: Overall [good] quality study. Patient's baseline rhythm was [normal sinus rhythm]. Maximum heart rate 153 bpm Minimum heart rate 52 bpm during nighttime Average heart rate 92 bpm. Patient had total 31% tachycardia burden. Patient had less than 1% bradycardia burden. There was no significant PAC or PVCs noted. There were no observed atrial fibrillation, atrial flutter or sustained ventricular rhythm. There were no observed sinus pauses which were more than 2 second long. Patient symptoms correlation: Patient reported 7 events palpitations and lightheadedness which corresponded to normal sinus rhythm Conclusion Overall nonrevealing 3-day event monitor with no significant arrhythmias or ectopic beats MTDD
== END | disposition home or self-care (01) ==
LOC: RADECHMAIN 07:59
PROVIDERS: ATTEND Family Medicine
DX: R00.2 Palpitations (principal)
CPT/HCPCS: 93225; 93226

== ENCOUNTER 2024-07-26 12:21 | Inpatient (IN) | payer MEDICAID, OTHER ==
--- NOTE | 2024-07-26 13:56 | ED ---
General Adult HPI - General Chief complaint: Alcohol Stated complaint: Detox Time Seen by Provider: 07/26/24 13:29 Source: patient Mode of arrival: ambulatory Limitations: no limitations - History of Present Illness Initial comments: Patient is a 34-year-old man who presents with complaint that he has been having a lot of anxiety and some suicidal thoughts over the past 4 to 5 days. The patient states that his ncfshic-sy-nqd got out of [facility] and then came and was using meth around him. The patient's knubicr-nq-frv also reportedly stole his Suboxone so that he has been without it for 4 to 5 days now. He has been having withdrawal symptoms and results has been using and drinking. He has had thoughts of suicide and states that he took "too much gabapentin last night." He states that he feels he needs to be admitted to the hospital to stabilize his mood. Onset/Timin -: days(s) Consistency: constant Improves with: none Worsens with: none - Related Data Home Medications Medication Instructions Recorded Confirmed Albuterol Inhaler [Ventolin Hfa 2 puff INHALATION RT-QID PRN 06/29/23 07/26/24 Inhaler] Budesonide/Formoterol Fumarate 2 puff INHALATION RT-BID 08/31/23 07/28/24 [Symbicort 80-4.5 Mcg Inhaler] Buprenorphine HCl/Naloxone HCl 1 film SL TID 08/31/23 07/26/24 [Suboxone 8 mg-2 mg Sl Film] Previous Rx's Medication Instructions Recorded Folic Acid 1 mg PO DAILY tab 08/01/24 Gabapentin 600 mg PO BID PRN 30 Days #60 tab 08/01/24 Ibuprofen [Motrin] 600 mg PO Q6HR PRN tab 08/01/24 [place] Carbonate 300 mg PO HS 30 Days #30 cap 08/01/24 Metoprolol Succinate (ER) [Toprol 100 mg PO DAILY 30 Days #30 tab 08/01/24 XL] Multivitamins, Thera [Multivitamin 1 each PO DAILY tab 08/01/24 (formulary)] Nicotine 21Mg/24Hr Patch [Habitrol] 1 patch TRANSDERM DAILY 14 Days 08/01/24 #14 patch Sertraline [Zoloft] 100 mg PO HS 30 Days #30 tab 08/01/24 Thiamine [Vitamin B-1] 100 mg PO DAILY tab 08/01/24 Ziprasidone [Geodon] 20 mg PO BID 30 Days #60 cap 08/01/24 traZODone HCL 150 mg PO HS PRN 30 Days #30 tablet 08/01/24 Allergies Allergy/AdvReac Type Severity Reaction Status Date / Time No Known Allergies Allergy Verified 07/26/24 17:08 Review of Systems ROS Statement: Those systems with pertinent positive or pertinent negative responses have been documented in the HPI. ROS Other: All systems not noted in ROS Statement are negative. Constitutional: Denies: fever, chills, weakness Eyes: Denies: vision change Respiratory: Denies: cough, dyspnea Cardiovascular: Reports: palpitations. Denies: chest pain, edema, syncope Gastrointestinal: Reports: nausea, vomiting, diarrhea. Denies: abdominal pain, hematemesis, melena, hematochezia Genitourinary: Denies: dysuria, hematuria Musculoskeletal: Denies: back pain Skin: Denies: rash Neurological: Reports: headache. Denies: weakness, numbness Psychiatric: Reports: anxiety, suicidal thoughts Past Medical History Past Medical History: Asthma, Seizure Disorder Additional Past Medical History / Comment(s): heroin and cocaine use, pt states he had "one seizure" in the past 2013 was not treated History of Any Multi-Drug Resistant Organisms: None Reported Past Surgical History: Orthopedic Surgery Additional Past Surgical History / Comment(s): rt wrist repair from dog bite. [place] teeth removal Past Anesthesia/Blood Transfusion Reactions: No Reported Reaction Additional Past Anesthesia/Blood Transfusion Reaction / Comment(s): pt states he woke up during wisdom tooth removing Past Psychological History: Anxiety, Depression Smoking Status: Current some day smoker, Vaper - Past Family History Father Family Medical History: No Reported History General Exam Limitations: no limitations General appearance: alert, in no apparent distress Head exam: Present: atraumatic, normocephalic Eye exam: Present: normal appearance ENT exam: Present: mucous membranes dry Neck exam: Present: normal inspection Respiratory exam: Present: normal lung sounds bilaterally. Absent: respiratory distress, wheezes, rales, rhonchi, stridor, accessory muscle use Cardiovascular Exam: Present: normal rhythm, tachycardia, normal heart sounds. Absent: systolic murmur, diastolic murmur, rubs, gallop GI/Abdominal exam: Present: soft. Absent: distended, tenderness, guarding, rebound, rigid, mass Extremities exam: Present: normal inspection, normal capillary refill. Absent: pedal edema, calf tenderness Back exam: Present: normal inspection. Absent: CVA tenderness (R), CVA tenderness (L) Neurological exam: Present: alert Psychiatric exam: Present: anxious, suicidal ideation. Absent: agitated, flat affect, manic, homicidal ideation Skin exam: Present: warm, dry, intact, normal color. Absent: rash Course Vital Signs 07/26/24 07/26/24 07/26/24 12:29 15:05 16:40 Temperature 98.4 F Pulse Rate 138 H 101 H Respiratory 17 18 Rate Blood Pressure 141/101 O2 Sat by Pulse 97 Oximetry 07/26/24 18:20 Temperature Pulse Rate 124 H Respiratory 17 Rate Blood Pressure 139/90 O2 Sat by Pulse 96 Oximetry EKG Findings - EKG Results: EKG: interpreted by ERMD, sinus rhythm, normal axis, normal QRS EKG shows: tachycardia (Rate 128 bpm) - Blocks, [place], Hypertrophy, ST Abn: Repolarization changes or abnormalities: nonspecific abnormality, ST segment, and/or T wave Medical Decision Making - Medical Decision Making Was pt. sent in by a medical professional or institution (, PA, ASSISTANT SPA MANAGER, urgent care, hospital, or penitentiary...) When possible be specific @ -[No] Did you speak to anyone other than the patient for history (EMS, parent, family, police, friend...)? What history was obtained from this source @ -[No] Did you review nursing and triage notes (agree or disagree)? Why? @ -[I reviewed and agree with nursing and triage notes] Were old charts reviewed (outside hosp., previous admission, EMS record, old EKG, old radiological studies, urgent care reports/EKG's, penitentiary records)? Report findings @ -[No old charts were reviewed] Differential Diagnosis (chest pain, altered mental status, abdominal pain women, abdominal pain men, vaginal bleeding, weakness, fever, dyspnea, syncope, headache, dizziness, GI bleed, back pain, seizure, CVA, palpatations, mental health, musculoskeletal)? @ -[Differential Mental Health Depression, anxiety, bipolar, psychosis, schizophrenia, borderline personality, situational depression, adjustment disorder, behavioral disorder, brain tumor, malingering, substance abuse, encephalopathy, medication reaction, dementia, hypothyroidism, degenerative neurologic disorder, lupus.... This is not meant to be all-inclusive list EKG interpreted by me (3pts min.). @ -[As above] X-rays interpreted by me (1pt min.). @ -[None done] CT interpreted by me (1pt min.). @ -[None done] U/S interpreted by me (1pt. min.). @ -[None done] What testing was considered but not performed or refused? (CT, X-rays, U/S, labs)? Why? @ -[None] What meds were considered but not given or refused? Why? @ -[None] Did you discuss the management of the patient with other professionals (professionals i.e. , PA, ASSISTANT SPA MANAGER, lab, RT, psych nurse, social welfare research worker, hazmat technician, teacher, booking police officer, protective services case worker)? Give summary @ -[Case discussed with EPS personnel, and after they reviewed, feel patient should be admitted for further mental health care Was smoking cessation discussed for >3mins.? @ -[No] Was critical care preformed (if so, how long)? @ -[No] Were there social determinants of health that impacted care today? How? (Homelessness, low income, unemployed, alcoholism, drug addiction, transportation, low edu. Level, literacy, decrease access to med. care, care home, rehab)? @ -Substance abuse Was there de-escalation of care discussed even if they declined (Discuss DNR or withdrawal of care, Hospice)? DNR status @ -[No] What co-morbidities impacted this encounter? (DM, HTN, Smoking, COPD, CAD, Cancer, CVA, ARF, Chemo, Hep., AIDS, mental health diagnosis, sleep apnea, morbid obesity)? @ -[Previous history of mood disorder. Substance abuse Was patient admitted / discharged? Hospital course, mention meds given and route, prescriptions, significant lab abnormalities, going to OR and other pertinent info. @ -[hospital course] Undiagnosed new problem with uncertain prognosis? @ -[No] Drug Therapy requiring intensive monitoring for toxicity (Heparin, Nitro, Insulin, Cardizem)? @ -[No] Were any procedures done? @ -[No] Diagnosis/symptom? @ -[Mood disorder with suicidal ideation Substance abuse Acute, or Chronic, or Acute on Chronic? @ -[Acute Uncomplicated (without systemic symptoms) or Complicated (systemic symptoms)? @ -[Uncomplicated Side effects of treatment? @ -[No] Exacerbation, Progression, or Severe Exacerbation? @ -[No] Poses a threat to life or bodily function? How? (Chest pain, [place], NH, pneumonia, PE, COPD, DKA, ARF, appy, cholecystitis, CVA, Diverticulitis, Homicidal, Suicidal, threat to staff... and all critical care pts) @ -[Yes, there is risk of suicide attempt/completion All treatments are based on ideal body weight as in ED triage - Lab Data Result diagrams: 07/26/24 14:16 07/26/24 14:16 Lab Results 07/26/24 07/26/24 07/26/24 Range/Units 14:16 14:16 18:46 WBC 7.84 (4.50-10.00) 10*3/uL RBC 5.08 (4.40-5.60) 10*6/uL Hgb 15.5 (13.0-17.0) g/dL Hct 43.4 (39.6-50.0) % MCV 85.4 (80.0-97.0) fL MCH 30.5 (27.0-32.0) pg MCHC 35.7 (32.0-37.0) g/dL Plt Count 282 (140-440) 10*3/uL MPV 8.7 L (9.5-12.2) fL Immature Gran % (Auto) 0.3 % Neutrophils % 74.4 % Lymphocytes % 17.3 % Monocytes % 7.5 % Eosinophils % 0.1 % Basophils % 0.4 % Immature Gran # 0.02 (0.00-0.04) 10*3/uL Neutrophils # 5.83 (1.80-7.70) 10*3/uL Lymphocytes # 1.36 (0.90-5.00) 10*3/uL Monocytes # 0.59 (0.20-1.00) 10*3/uL Eosinophils # 0.01 L (0.04-0.35) 10*3/uL Basophils # 0.03 (0.00-0.10) 10*3/uL Sodium 138 (137-145) mmol/L Potassium 3.6 (3.5-5.1) mmol/L Chloride 98 (98-107) mmol/L Carbon Dioxide 24 (22-30) mmol/L Anion Gap 16 mmol/L BUN 9 (9-20) mg/dL Creatinine 0.94 (0.66-1.25) mg/dL Est GFR (CKD-EPI)AfAm >90 (>60 ml/min/1.73 sqM) Est GFR (CKD-EPI)NonAf >90 (>60 ml/min/1.73 sqM) Glucose 108 H (74-99) mg/dL Calcium 9.5 (8.4-10.2) mg/dL Total Bilirubin 0.8 (0.2-1.3) mg/dL AST 79 H (17-59) U/L ALT 80 H (4-49) U/L Alkaline Phosphatase 77 (38-126) U/L Total Protein 8.2 (6.3-8.2) g/dL Albumin 5.4 H (3.5-5.0) g/dL SARS-CoV-2 (PCR) Not Detected (Not Detectd) Disposition Clinical Impression: Mood disorder, Suicidal ideation, Substance abuse Disposition: TRANSFER TO PSYCH HOSP/UNIT Condition: Stable Is patient prescribed a controlled substance at d/c from ED?: No
[2024-07-26] MEDS: LORazepam 2 MG/ML INJ IV STA (14:15)
[2024-07-26] MEDS: NICOTINE 14MG/24HR PATCH TRANSDERM STA (14:15)
[2024-07-26] MEDS: SODIUM CHLORIDE 0.9% 1,000 ML IV ONE (14:16)
[2024-07-26 14:35] LABS: Basophils # (A) 0.03 10*3/uL (0.00-0.10); Basophils % (A) 0.4 %; Eosinophils # (A) 0.01 10*3/uL (0.04-0.35); Eosinophils % (A) 0.1 %; HCT 43.4 % (39.6-50.0); HGB 15.5 g/dL (13.0-17.0); Lymphocytes # (A) 1.36 10*3/uL (0.90-5.00); Lymphocytes % (A) 17.3 %; MCH 30.5 pg (27.0-32.0); MCHC 35.7 g/dL (32.0-37.0); MCV 85.4 fL (80.0-97.0); Mean Platelet Volume 8.7 fL (9.5-12.2); Monocytes # (A) 0.59 10*3/uL (0.20-1.00); Monocytes % (A) 7.5 %; Neutrophils # (A) 5.83 10*3/uL (1.80-7.70); Neutrophils % (A) 74.4 %; Platelet Count 282 10*3/uL (140-440); RBC 5.08 10*6/uL (4.40-5.60); RDW 12.8 % (11.5-14.5); WBC 7.84 10*3/uL (4.50-10.00)
[2024-07-26 14:51] LABS: ALT 80 U/L (4-49); AST 79 U/L (17-59); African American GFR (CKD) >90 (>60 ml/min/1.73 sqM); Albumin 5.4 g/dL (3.5-5.0); Alkaline Phosphatase 77 U/L (38-126); Anion Gap 16 mmol/L; Blood Urea Nitrogen 9 mg/dL (9-20); Calcium 9.5 mg/dL (8.4-10.2); Carbon Dioxide 24 mmol/L (22-30); Chloride 98 mmol/L (98-107); Glucose 108 mg/dL (74-99); Non-African American GFR(CKD) >90 (>60 ml/min/1.73 sqM); Potassium 3.6 mmol/L (3.5-5.1); Sodium 138 mmol/L (137-145); Total Bilirubin 0.8 mg/dL (0.2-1.3); Total Protein 8.2 g/dL (6.3-8.2)
[2024-07-26] MEDS ORDERED: HALOPERIDOL LACTATE 5 MG/ML 1 ML VIAL IM PRN (19:55)
[2024-07-26] MEDS ORDERED: MAG HYDROX/AL HYDROX/SIMETH 355 ML BOTTLE PO PRN (19:55)
[2024-07-26] MEDS ORDERED: LORazepam 2 MG/ML INJ IM PRN (19:55)
[2024-07-26] MEDS ORDERED: IBUPROFEN 600 MG TAB PO PRN (19:55)
[2024-07-26] MEDS ORDERED: MAGNESIUM HYDROXIDE 2,400 MG/30 ML CUP PO PRN (19:55)
[2024-07-26] MEDS ORDERED: ALBUTEROL INHALER 60 PUFF/8 GM INHALER (MHU) INHALATION PRN (19:57)
[2024-07-26 21:00] LABS: Appearance,Urine Clear (Clear); Bilirubin,Urine Negative (Negative); Blood,Urine Negative (Negative); Color,Urine Colorless; Glucose,Urine (UA) Negative (Negative); Ketones,Urine Negative (Negative); Leukocyte Esterase,Urine Negative (Negative); Nitrite,Urine Negative (Negative); Protein,Urine Negative (Negative); Specific Gravity,Urine 1.004 (1.001-1.035); Urobilinogen,Urine <2.0 mg/dL (<2.0)
[2024-07-26] MEDS: PATIENT'S OWN (Buprenorphine Hcl/Naloxone Hcl [Suboxone 8 Mg-2 Mg Sl Film] 1 EACH Fil SUBLINGUAL SCH (21:18)
[2024-07-26] MEDS: SERTRALINE 50 MG TAB PO SCH (21:18)
[2024-07-26] MEDS: LITHIUM CARBONATE 150 MG CAP PO SCH (21:18)
[2024-07-26] MEDS: SYMBICORT 80-4.5 MCG INHALER (MHU) INHALATION SCH (21:18)
[2024-07-26] MEDS ORDERED: PATIENT'S OWN (Buprenorphine Hcl/Naloxone Hcl [Suboxone 8 Mg-2 Mg Sl Film] 1 EACH Fil SUBLINGUAL SCH (22:00)
[2024-07-26] MEDS: LORazepam 1 MG TAB PO PRN (22:35)
[2024-07-27] MEDS: LORazepam 1 MG TAB PO PRN ×2 (01:53→10:25)
[2024-07-27 07:26] LABS: Urine Alcohol Positive (Negative); Urine Barbiturate Negative (Negative); Urine Cocaine Negative (Negative); Urine Methadone Negative (Negative); Urine Opiates Negative (Negative); Urine Phencyclidine Negative (Negative)
[2024-07-27] MEDS: NICOTINE 14MG/24HR PATCH TRANSDERM SCH (08:31)
[2024-07-27] MEDS: METOPROLOL SUCCINATE (ER) 100 MG TAB.ER.24H PO SCH (08:31)
[2024-07-27] MEDS: THIAMINE 100 MG TAB PO SCH (08:31)
[2024-07-27] MEDS: MULTIVITAMINS, THERA 1 EACH TAB PO SCH (08:31)
[2024-07-27] MEDS: FOLIC ACID 1 MG TAB PO SCH (08:31)
[2024-07-27 08:50] LABS: ALT 88 U/L (4-49); AST 77 U/L (17-59); Albumin 4.5 g/dL (3.5-5.0); Alkaline Phosphatase 72 U/L (38-126); Bilirubin, Delta 0.2 mg/dL (0.0-0.2); Bilirubin,Unconjugated 0.8 mg/dL (0.0-1.1); Total Protein 6.8 g/dL (6.3-8.2)
--- NOTE | 2024-07-27 09:41 | P.HP ---
Psychiatric H&P - . H&P Date: 07/27/24 History & Physical: Allergies Allergy/AdvReac Type Severity Reaction Status Date / Time No Known Allergies Allergy Verified 07/26/24 17:08 Vital Signs Temp 98.9 F 07/26/24 21:00 Pulse 126 H 07/26/24 21:00 Resp 18 07/26/24 21:00 BP 131/80 07/26/24 21:00 Pulse Ox 96 07/26/24 21:00 FiO2 Intake & Output 07/26/24 07/27/24 07/27/24 18:59 06:59 18:59 Weight 79.379 kg 78.517 kg Laboratory Last Values WBC 7.84 10*3/uL (4.50-10.00) 07/26/24 14:16 RBC 5.08 10*6/uL (4.40-5.60) 07/26/24 14:16 Hgb 15.5 g/dL (13.0-17.0) 07/26/24 14:16 Hct 43.4 % (39.6-50.0) 07/26/24 14:16 MCV 85.4 fL (80.0-97.0) 07/26/24 14:16 MCH 30.5 pg (27.0-32.0) 07/26/24 14:16 MCHC 35.7 g/dL (32.0-37.0) 07/26/24 14:16 Plt Count 282 10*3/uL (140-440) 07/26/24 14:16 MPV 8.7 fL (9.5-12.2) L 07/26/24 14:16 Immature Gran % (Auto) 0.3 % 07/26/24 14:16 Neutrophils % 74.4 % 07/26/24 14:16 Lymphocytes % 17.3 % 07/26/24 14:16 Monocytes % 7.5 % 07/26/24 14:16 Eosinophils % 0.1 % 07/26/24 14:16 Basophils % 0.4 % 07/26/24 14:16 Immature Gran # 0.02 10*3/uL (0.00-0.04) 07/26/24 14:16 Neutrophils # 5.83 10*3/uL (1.80-7.70) 07/26/24 14:16 Lymphocytes # 1.36 10*3/uL (0.90-5.00) 07/26/24 14:16 Monocytes # 0.59 10*3/uL (0.20-1.00) 07/26/24 14:16 Eosinophils # 0.01 10*3/uL (0.04-0.35) L 07/26/24 14:16 Basophils # 0.03 10*3/uL (0.00-0.10) 07/26/24 14:16 Sodium 138 mmol/L (137-145) 07/26/24 14:16 Potassium 3.6 mmol/L (3.5-5.1) 07/26/24 14:16 Chloride 98 mmol/L (98-107) 07/26/24 14:16 Carbon Dioxide 24 mmol/L (22-30) 07/26/24 14:16 Anion Gap 16 mmol/L 07/26/24 14:16 BUN 9 mg/dL (9-20) 07/26/24 14:16 Creatinine 0.94 mg/dL (0.66-1.25) 07/26/24 14:16 Est GFR (CKD-EPI)AfAm >90 (>60 ml/min/1.73 sqM) 07/26/24 14:16 Est GFR (CKD-EPI)NonAf >90 (>60 ml/min/1.73 sqM) 07/26/24 14:16 Glucose 108 mg/dL (74-99) H 07/26/24 14:16 Calcium 9.5 mg/dL (8.4-10.2) 07/26/24 14:16 Total Bilirubin 1.0 mg/dL (0.2-1.3) 07/27/24 07:54 Conjugated Bilirubin 0.0 mg/dL (0.0-0.3) 07/27/24 07:54 Unconjugated Bilirubin 0.8 mg/dL (0.0-1.1) 07/27/24 07:54 Delta Bilirubin 0.2 mg/dL (0.0-0.2) 07/27/24 07:54 AST 77 U/L (17-59) H 07/27/24 07:54 ALT 88 U/L (4-49) H 07/27/24 07:54 Alkaline Phosphatase 72 U/L (38-126) 07/27/24 07:54 Total Protein 6.8 g/dL (6.3-8.2) 07/27/24 07:54 Albumin 4.5 g/dL (3.5-5.0) 07/27/24 07:54 TSH 3.790 mIU/L (0.465-4.680) 07/27/24 07:54 Urine Color Colorless 07/26/24 20: Urine Appearance Clear (Clear) 07/26/24 20: Urine pH 5.0 (5.0-8.0) 07/26/24 20: Ur Specific [place] 1.004 (1.001-1.035) 07/26/24 20: Urine Protein Negative (Negative) 07/26/24: Urine Glucose (UA) Negative (Negative) 07/26/24 20: Urine Ketones Negative (Negative) 07/26/24 20: Urine Blood Negative (Negative) 07/26/24 20: Urine Nitrite Negative (Negative) 07/26/24: Urine Bilirubin Negative (Negative) 07/26/24: Urine Urobilinogen <2.0 mg/dL (<2.0) 07/26/24 20:23 Ur Leukocyte Esterase Negative (Negative) 07/26/24 20:23 Urine Opiates Screen Negative (Negative) 07/26/24: Urine Methadone Screen Negative (Negative) 07/26/24 20:23 Ur Propoxyphene Screen Negative (Negative) 07/26/24 20:23 Urine Barbiturates Negative (Negative) 07/26/24 20:23 Ur Phencyclidine Scrn Negative (Negative) 07/26/24: Ur Amphetamine Screen Negative (Negative) 07/26/24 20: U Benzodiazepines Scrn Negative (Negative) 07/26/24 20: Urine Cocaine Screen Negative (Negative) 07/26/24: U Cannabinoids Screen Negative (Negative) 07/26/24: Urine Alcohol Positive (Negative) A 07/26/24 20: U Creatinine Drug Scrn 48.2 mg/dL (>=20.0) 07/26/24 20:23 SARS-CoV-2 (PCR) Not Detected (Not Detectd) 07/26/24 18:46 04/20/25 09:35 Patient is a 34-year-old man who presents with complaint that he has been having a lot of anxiety and some suicidal thoughts over the past 4 to 5 days. The patient states that his xsromco-kv-tpv got out of [facility] and then came and was using meth around him. The patient's [id number] also reportedly stole his S uboxone so that he has been without it for 4 to 5 days now. He has been having withdrawal symptoms and results has been using and drinking. He has had thoughts of suicide and states that he took "too much gabapentin last night." He states that he feels he needs to be admitted to the hospital to stabilize his mood. Subjective: The patient has a history of mood swings going back quite a ways he tried to treated with opioids and about 5 years ago got on Suboxone and has been stable on that. He has up episodes during which time he has decreased need for sleep drives too fast talks too fast spends money and then this goes away and he crashes into depression. He has been treated with Prozac which made him more agitated and depressed currently he is on sertraline 150 which he does not think is helping he was started on a tiny dose of lithium 150 twice a day. Neither of them are helping. Social history the patient is the oldest of 2 brothers born to his parents who split up when he was 9 his mother struggled with bipolar and alcohol both of her parents young of alcohol and bipolar his father's mother struggled with alcohol and bipolar patient had a normal and early delivery but mom was not able to take good care of him his dad left the area when he was 11 moving down to [place] so he had a troubled childhood the patient managed to finish high school try to go to college but dropped out after a semester he is for 4 years and his 's family has bipolar so she understands what is going through but needs him to deal with that they do have a 2-year-old son 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 He is oriented to person place time and circumstances psychomotor activity is normal. Concentration is poor because his mind is racing he could remember 2 of 3 objects after immediate recall has to repeat them several times. He can remember 1 of those after 5 minutes. He can name the current president but could not remember who was before that. He could not spell world backward he did fairly well on abstracting how cats and snakes are like and that they have tails eyes and they are alive but his mind will keep wondering if to pull it back to the question in order to give those answers for the graphic screen on the side offense he said changed so that things will be better. Subtracting 7 from 90 3.85. He says that he has weird sleep patterns where he will wake up in the middle of the night, and be completely frozen and feel like someone is in the room but there is no daytime psychotic symptoms. Diagnosis bipolar 1 depressed and history of opioid abuse Plan patient needs to come off the Zoloft as it makes bipolar worse he needs to get on a stabilizer he wants something that helps him sleep and that works fast so remember tried Bobo will give him 60 mg tonight and if he tolerates it then tomorrow they can consider increasing it to 60 at supper and 60 at bedtime.
[2024-07-27 13:28] LABS: LDL Cholesterol,Calculated 111.9 mg/dL (0.0-131.0)
[2024-07-27] MEDS: ZIPRASIDONE 60 MG CAP PO SCH (21:01)
[2024-07-28] MEDS: GABAPENTIN 300 MG CAP PO PRN (12:33)
--- NOTE | 2024-07-28 12:34 | P.PN ---
Progress Note - Text Progress Note Date: 07/28/24 Interval History: Patient was seen today in the hallways, agreeable to speak to script writer in the of f[facility] today. Patient claims that he was having a difficult time at home due to his "sleeping with other guys" and him feeling unstable, claims that he has been feeling depressed, overdosed before coming into the hospital. Also claims that he has been struggling with alcohol use, has been drinking a pint of liquor a day, is endorsing some withdrawal symptoms at this time including shakes. Cl aims that he has been having an increase in his anxiety lately, endorsing depression. Claims that he is willing to go to rehab at this time, did the screening earlier today. He states that he was able to sleep fairly last night. Claims that he is not having any suicidal homicidal ideations intent or plan, denying any auditory or visual hallucinations. Not reporting any side effects on the medications has been compliant with them. MENTAL STATUS EXAM: General Appearance: Patient appears to be well-groomed, stated age is alert, directable, and attempts to cooperate. Patient appears to have fair hygiene and grooming. Behavior: Patient is seated without any agitated behavior. Attempts to cooperate, appears hesitant and anxious Speech: Patient's speech is fluent and nonpressured, anxious tone Mood/Affect: Patient reports their mood is "depressed and anxious", affect is congruent and improving mildly Suicidality/Homicidality: Patient denies having any homicidal ideation intent or plan. Denies any suicidal ideations intent or plan Perceptions: Patient denies any visual hallucinations and denies any auditory hallucinations Though content/process: There is no evidence of any delusional thought content and thought process is linear and goal-directed. Focused on his medications and his stressors at home. Memory and concentration: AOX3, grossly intact for the purposes of this session Judgment and insight: Poor IMPRESSIONS: Mood disorder NOS, r/o bipolar disorder vs MDD suicide attempt by overdose on medications Alcohol use disorder, severe dependence Generalized anxiety disorder opioid use disorder in remission, on agonist therapy PTSD nicotine dependence PLAN: -Patient is admitted under voluntary status to [facility] for stabilization of psychiatric symptoms and safety. Patient has signed adult voluntary form and medication consent and is placed in patient's chart. -Medications : 50 mg Zoloft nightly for mood/anxiety, lithium 300 mg qhs for mood stabilization/suicidal thoughts. suboxone 1 tab tid for opioid use disorder. trazodone 50 mg qhs prn for insomnia. added librium 20 mg tid for etoh withdrawal, plan to taper. -haldol and ativan PRN for agitation/aggression -thiamine, MVM for etoh use -CIWA protocol with Ativan PRN for ETOH withdrawal. -NRT -nicotine patch -SW on board for discharge planning. Encourage patient to participate in groups to work on coping skills. he is interested in rehab, will await approval and intake date.
[2024-07-28] MEDS: BUPRENORPHINE-NALOX 8-2 MG TAB 1 EACH TAB.SUBL SL SCH (15:53)
[2024-07-28] MEDS: SERTRALINE 50 MG TAB PO SCH (20:52)
[2024-07-28] MEDS: LITHIUM CARBONATE 300 MG CAP PO SCH (20:52)
--- NOTE | 2024-07-28 21:18 | HP ---
HISTORY AND PHYSICAL CHIEF COMPLAINT: Major depression, suicidal thoughts, and history of substance abuse. HISTORY OF PRESENT ILLNESS: This is another admission for this 34-year-old white male. He has had numerous substance problems over the years including alcohol, narcotics, and others. When sober, he is a productive individual. He is to a lady who has also had a past history of substance and drug abuse and apparently the marriage is falling apart with the seeing someone else, both of whom may be using drugs. He came to the emergency room depressed and thinking of killing himself. REVIEW OF SYSTEMS: He has otherwise not had any complaints. Past medical history, family history, and personal and social histories are otherwise unremarkable. He is not allergic to any medication. MEDICATIONS: He has been on, 1. Sertraline. 2. [place]. 3. Gabapentin. 4. Albuterol. 5. Suboxone. 6. Symbicort. SOCIAL HISTORY: He has continued to consume alcohol. PHYSICAL EXAMINATION: VITAL SIGNS: Normal. HEAD, EARS, EYES, NOSE, MOUTH AND THROAT: Normal. CHEST: Clear. CARDIAC: Normal. ABDOMEN: Soft, nontender. EXTREMITIES: Normal. IMPRESSION: 1. Major depression. 2. Suicidal personality. 3. Long history of substance abuse. RECOMMENDATIONS: None at this time. Thank you respectfully, MMODL / IJN: [id number] /
[2024-07-28] MEDS: traZODone HCL 50 MG TAB PO PRN (22:29)
[2024-07-29] MEDS: NICOTINE 21MG/24HR PATCH TRANSDERM SCH (09:00)
--- NOTE | 2024-07-29 11:54 | P.PN ---
Progress Note - Text Progress Note Date: 07/29/24 Interval History: Patient was seen today in the hallways, agreeable to speak to senior technical writer in the of [facility] today. Patient was also noted to be participating in groups today. He claims that he is doing a bit better today, claims that his mood is more stable, continues to be overwhelmed with his situation. States that he is still waiting on an intake date at rehab and wants to go. Claims that he feels that he would relapse if he went home upon discharge from the hospital. He states that he was able to sleep fairly last night. Claims that he is not having any suicidal homicidal ideations intent or plan, denying any auditory or visual hallucinations. Not reporting any side effects on the medications has been compliant with them. MENTAL STATUS EXAM: General Appearance: Patient appears to be well-groomed, stated age is alert, directable, and attempts to cooperate. Patient appears to have fair hygiene and grooming. Behavior: Patient is seated without any agitated behavior. Attempts to cooperate, appears hesitant and anxious, improving mildly Speech: Patient's speech is fluent and nonpressured, anxious tone, improving mildly Mood/Affect: Patient reports their mood is "a bit better", affect is congruent and improving mildly Suicidality/Homicidality: Patient denies having any homicidal ideation intent or plan. Denies any suicidal ideations intent or plan Perceptions: Patient denies any visual hallucinations and denies any auditory hallucinations Though content/process: There is no evidence of any delusional thought content and thought process is linear and goal-directed. Focused on his medications Memory and concentration: AOX3, grossly intact for the purposes of this session Judgment and insight: Poor, improving mildly IMPRESSIONS: Mood disorder NOS, r/o bipolar disorder vs MDD suicide attempt by overdose on medications Alcohol use disorder, severe dependence Generalized anxiety disorder opioid use disorder in remission, on agonist therapy PTSD nicotine dependence PLAN: -Patient is admitted under voluntary status to [facility] for stabilization of psychiatric symptoms and safety. Patient has signed adult voluntary form and medication consent and is placed in patient's chart. -Medications : Increase 75 mg Zoloft nightly for mood/anxiety, lithium 300 mg qhs for mood stabilization/suicidal thoughts. suboxone 1 tab tid for opioid use disorder. increase trazodone 100 mg qhs for insomnia. continue tapering librium 10 mg qid for etoh withdrawal, plan to taper. -haldol and ativan PRN for agitation/aggression -thiamine, MVM for etoh use -CIWA protocol with Ativan PRN for ETOH withdrawal. -NRT -nicotine patch -SW on board for discharge planning. Encourage patient to participate in groups to work on coping skills. awaiting approval [facility]. declining anti cravings meds.
[2024-07-29] MEDS: ACETAMINOPHEN TAB 325 MG TAB PO PRN (15:47)
[2024-07-29] MEDS: SERTRALINE 50 MG TAB PO SCH (20:15)
[2024-07-29] MEDS: haloperidoL 5 MG TAB PO PRN (20:47)
[2024-07-29] MEDS: traZODone HCL 100 MG TAB PO SCH (22:20)
[2024-07-30] MEDS ORDERED: OLANZapine 10 MG VIAL IM PRN (12:04)
[2024-07-30] MEDS ORDERED: OLANZapine 5 MG TAB PO PRN (12:04)
--- NOTE | 2024-07-30 12:15 | P.PN ---
Progress Note - Text Progress Note Date: 07/30/24 Interval History: Patient was seen today in the hallways. Patient was agreeable to speak to naga bustillos today in the office. He appears to have more depressed affect today, claims that he is not feeling himself. Claims that he is still having some mood swings and kind of "out of it". Claims that he is dealing with a lot of stressors including the legal stressor of his DUI and also the divorce. Claims that he is trying to go to groups. Claims that his rn research will be coming to talk with him in a couple of hours. States that he is upset that he got rejected from rehab at [place] and is hesistant about trying [facility] due to his court proceedings in this area. He states that he was sleeping on and off last night, was requesting to go back on geodon instead of trazodone as he felt that helped him better with sleep and also with stabilizaing his mood. Claims that he is not having any suicidal homicidal ideations intent or plan, denying any auditory or visual hallucinations. Not reporting any side effects on the medications has been compliant with them. MENTAL STATUS EXAM: General Appearance: Patient appears to be well-groomed, stated age is alert, directable, and attempts to cooperate. Patient appears to have fair hygiene and grooming. Behavior: Patient is seated without any agitated behavior. Attempts to cooperate, appears hesitant and anxious, appears upset, improving mildly Speech: Patient's speech is fluent and nonpressured, improving mildly Mood/Affect: Patient reports their mood is "not good and unstable", affect is congruent and appears constricted Suicidality/Homicidality: Patient denies having any homicidal ideation intent or plan. Denies any suicidal ideations intent or plan Perceptions: Patient denies any visual hallucinations and denies any auditory hallucinations Though content/process: There is no evidence of any delusional thought content and thought process is linear and goal-directed. concrete Memory and concentration: AOX3, grossly intact for the purposes of this session Judgment and insight: Poor, improving mildly IMPRESSIONS: Mood disorder NOS, r/o bipolar disorder vs MDD suicide attempt by overdose on medications Alcohol use disorder, severe dependence Generalized anxiety disorder opioid use disorder in remission, on agonist therapy PTSD nicotine dependence PLAN: -Patient is admitted under voluntary status to [facility] for stabilization of psychiatric symptoms and safety. Patient has signed adult voluntary form and medication consent and is placed in patient's chart. -Medications : Increase 100 mg Zoloft nightly for mood/anxiety, lithium 300 mg qhs for mood stabilization/suicidal thoughts. suboxone 1 tab tid for opioid use disorder. change trazodone with geodon 40 mg qhs for mood stabilization/insomnia. continue tapering librium 10 mg tid for etoh withdrawal, plan to taper off tomorrow -haldol and ativan PRN for agitation/aggression -thiamine, MVM for etoh use -CIWA protocol with Ativan PRN for ETOH withdrawal. -NRT -nicotine patch -SW on board for discharge planning. Encourage patient to participate in groups to work on coping skills. Patient was denied by [facility], patient will speak with his service line coordinator today to see if it is possible for him to go to [place] and if he is able to access the courts via Zoom from there. declining anti cravings meds.
[2024-07-30] MEDS: SERTRALINE 100 MG TAB PO SCH (20:14)
[2024-07-30] MEDS: ZIPRASIDONE 40 MG CAP PO SCH (20:14)
--- NOTE | 2024-07-31 12:10 | P.PN ---
Progress Note - Text Progress Note Date: 07/31/24 Interval History: Patient was seen today in the hallways. Patient was taking his medications. Patient was agreeable to speak to customs entry writer today in the office. Patient continues again to appear to be depressed today in his affect, claims that he is upset that he has not been accepted anywhere for rehab. We spoke about the opportunity of them reviewing his notes once again and that he may be allowed to go to rehab if they accept him. He claims that he is feeling a bit down and was "unstable" in his mood. He was requesting to have his Geodon split morning and night. Claims that he did not sleep well at nighttime however wanted to go back on the trazodone at the same dose. Claims that he will speak with his meat department manager today about the charges. He has been more visible on the unit trying to go to groups eating well. Claims that he is not having any suicidal homicidal ideations intent or plan, denying any auditory or visual hallucinations. Not reporting any side effects on the medications has been compliant with them. He appears to be motivated to go to rehab still if this is an option for him. MENTAL STATUS EXAM: General Appearance: Patient appears to be well-groomed, stated age is alert, directable, and attempts to cooperate. Patient appears to have fair hygiene and grooming. Behavior: Patient is seated without any agitated behavior. Attempts to cooperate, appears upset and anxious, Speech: Patient's speech is fluent and nonpressured, improving mildly Mood/Affect: Patient reports their mood is "unstable and not good", affect is congruent and appears constricted and upset Suicidality/Homicidality: Patient denies having any homicidal ideation intent or plan. Denies any suicidal ideations intent or plan Perceptions: Patient denies any visual hallucinations and denies any auditory hallucinations Though content/process: There is no evidence of any delusional thought content and thought process is linear and goal-directed. concrete focused on his symptoms Memory and concentration: AOX3, grossly intact for the purposes of this session Judgment and insight: Poor, improving mildly IMPRESSIONS: Mood disorder NOS, r/o bipolar disorder vs MDD suicide attempt by overdose on medications Alcohol use disorder, severe dependence Generalized anxiety disorder opioid use disorder in remission, on agonist therapy PTSD nicotine dependence PLAN: -Patient is admitted under voluntary status to [facility] for stabilization of psychiatric symptoms and safety. Patient has signed adult voluntary form and medication consent and is placed in patient's chart. -Medications : 100 mg Zoloft nightly for mood/anxiety, lithium 300 mg qhs for mood stabilization/suicidal thoughts. suboxone 1 tab tid for opioid use disorder. continue trazodone 100 mg qhs for insomnia/mood, change geodon 20 mg bid for mood stabilization/insomnia. continue tapering librium 10 mg tid for etoh withdrawal, plan to taper off today -haldol and ativan PRN for agitation/aggression -thiamine, MVM for etoh use -CIWA protocol with Ativan PRN for ETOH withdrawal. d/c today -NRT -nicotine patch -SW on board for discharge planning. Encourage patient to participate in groups to work on coping skills. Patient was denied by [facility], they are requesting additional notes and information and may reconsider accepting him. patient will speak with his assistant attorney general today to see if it is possible for him to go to [place] and if he is able to access the courts via Zoom from there. declining anti cravings meds.
[2024-07-31] MEDS: ZIPRASIDONE 20 MG CAP PO SCH (14:10)
[2024-07-31 20:48] VITALS: RESP 18
[2024-07-31] MEDS: traZODone HCL 100 MG TAB PO SCH (22:24)
[2024-08-01] MEDS ORDERED: BUPRENORPHINE-NALOX 8-2 MG TAB 1 EACH TAB.SUBL SL ONE (09:00)
--- NOTE | 2024-08-01 11:27 | P.DS ---
Providers Date of admission: 07/26/24 19:52 Expected date of discharge: 08/01/24 Attending physician: Romeo Price MD Consults: 07/26/24 19:55 Consult Physician Routine Consulting Provider: Ted Oneil Consult Reason/Comments: History and Physical, New Admission Do you want consulting provider notified?: Yes Primary care physician: Ted Oneil - Discharge Diagnosis(es) (1) Unspecified mood [affective] disorder Current Visit: Yes Status: Acute Priority: High (2) Suicide attempt by other psychotropic drug overdose Current Visit: Yes Status: Acute (3) Alcohol use disorder, severe, dependence Current Visit: Yes Status: Acute Priority: High (4) Generalized anxiety disorder Current Visit: Yes Status: Acute Priority: Medium (5) Opioid dependence on maintenance agonist therapy, no symptoms Current Visit: Yes Status: Acute Priority: Medium (6) PTSD (post-traumatic stress disorder) Current Visit: Yes Status: Acute Priority: Medium (7) Nicotine dependence Current Visit: Yes Status: Acute Priority: Low Hospital Course: Admission HPI: Admission note was completed by Dr Don "Patient is a 34-year-old man who presents with complaint that he has been having a lot of anxiety and some suicidal thoughts over the past 4 to 5 days. The patient states that his [id number] got out of assisted and then came and was using meth around him. The patient's [id number] also reportedly stole his Suboxone so that he has been without it for 4 to 5 days now. He has been having withdrawal symptoms and results has been using and drinking. He has had thoughts of suicide and states that he took "too much gabapentin last night." He states that he feels he needs to be admitted to the hospital to stabilize his mood. The patient has a history of mood swings going back quite a ways he tried to treated with opioids and about 5 years ago got on Suboxone and has been stable on that. He has up episodes during which time he has decreased need for sleep drives too fast talks too fast spends money and then this goes away and he crashes into depression. He has been treated with Prozac which made him more agitated and depressed currently he is on sertraline 150 which he does not think is helping he was started on a tiny dose of lithium 150 twice a day. Neither of them are helping." Hospital course: Upon admission to the unit patient was directable and agreeable to commence treatment and signed adult voluntary form. Patient was initially depressed anxious and hopeless however with time and treatment patient got along well with other patients on the unit and followed unit protocol. Patient was compliant with the medications and denied any side effects throughout hospital course. Patient was started on Zoloft increased to dose of 100 mg nightly for mood/anxiety, lithium 300 mg nightly for mood stabilization/suicidal thoughts, continued on home dose of Suboxone 1 tablet 3 times a day for opiate use disorder, trazodone 150 mg nightly for insomnia/mood, Geodon 20 mg twice daily for mood stabilization/insomnia, patient was also started on CIWA protocol with as needed Ativan and Librium scheduled which was tapered off for alcohol withdrawal symptoms. Patient spoke of his stressors and engaged in therapy both group/activity therapy. Patient was also seen by medical team for history and physical exam. Throughout the course of the hospitalization patient gradually improved with regards to mood, anxiety, mood lability, suicidal thoughts, sleep and became more future oriented with improved insight and judgment. On the day of discharge patient denied any suicidal or homicidal ideations intent or plan denied any auditory or visual hallucinations. Patient endorsed wanting to live for their health, kids and family. The patient denied any access to guns or weapons. Patient denied any paranoia and did not endorse any delusions. Patient does have a significant history of substance abuse and was counseled on abstaining from all substances including alcohol and marijuana. Patient ended up agreeing to inpatient subtance rehab. Patient was excepted to [facility], will be picked up by his father today for discharge and taken to [facility] for an intake date of today in the afternoon versus Sunday, he can stay with his father until then. Patient was also counseled on the medications and need for regular compliance and was encouraged to follow-up with their outpatient appointment for mental health and also for primary care. Prior to discharge a family meeting will be arranged by social media manager to answer any questions and ensure safety upon discharge incuding making sure that guns/weapons are either removed from the home or locked away. Mental status exam: General Appearance: Patient appears to be stated age is alert, pleasant, and cooperative. Patient is in no acute distress and has improved hygiene and grooming Behavior: Patient is calmly seated without any agitated behavior. Speech: Patient's speech is fluent and nonpressured. Mood/Affect: Patient reports their mood is "good", affect is congruent and euthymic. Suicidality/Homicidality: Patient denies having any suicidal or homicidal ideation intent or plan. Perceptions: Patient denies any auditory or visual hallucinations. Though content/process: There is no evidence of any delusional thought content and thought process is linear and goal-directed. More future oriented Memory and concentration: AOX3, grossly intact for the purposes of this session. Can spell "WORLD" backwards correctly. Judgment and insight: Chronically poor, however has improved with guarded prognosis Impression: Mood disorder unspecified, rule out bipolar disorder versus major depressive disorder Suicide attempt by overdose of other psychotropic medications Alcohol use disorder severe dependence Generalized anxiety disorder Opioid use disorder dependence on maintenance treatment agonist therapy no symptoms PTSD Nicotine dependence Plan: -Continue with discharge today as patient has improved and stabilized psychiatrically and is not currently an imminent threat to themself and/or others. Patient will remain at chronically elevated risk for harm to self and/or others due to their impulsivity and substance abuse. -Continue medications: Zoloft 100 mg nightly for mood/anxiety, lithium 300 mg nightly for mood stabilization/suicidal thoughts, continue with home dose of Suboxone 1 tablet 3 times a day for opiate use disorder, trazodone 150 mg nightly as needed for insomnia, Geodon 20 mg twice daily for mood s tabilization/insomnia. He was tapered off Librium. -Patient was counseled on the need for medication compliance and appropriate follow-up at mental health and also primary care for medical issues. Patient verbalized understanding and agreed. -Social work to arrange for and conduct family meeting to ensure safety upon discharge and answer any questions/concerns. also to ensure safe home environme nt that guns/weapons are either removed from the home or locked away. Social work also to arrange for patients follow up appointments with [facility] for psychiatric care along with follow up with primary care provider. -Patient counseled on abstaining from recreational drugs and marijuana and alcohol. Was informed/educated on the adverse effects on their physical and mental health. Patient verbally agreed and understood. Patient will be going to [facility] for inpatient rehab either this afternoon or Sunday depending on when they can take him, his father will allow patient to stay at his house until then and take him to the intake. -Patient was instructed to return to the hospital or seek immediate medical care if their psychiatric or medical symptoms do worsen or reoccur. Allergies Allergy/AdvReac Type Severity Reaction Status Date / Time No Known Allergies Allergy Verified 07/26/24 17:08 Laboratory Results WBC 7.84 10*3/uL (4.50-10.00) 07/26/24 14:16 RBC 5.08 10*6/uL (4.40-5.60) 07/26/24 14:16 Hgb 15.5 g/dL (13.0-17.0) 07/26/24 14:16 Hct 43.4 % (39.6-50.0) 07/26/24 14:16 MCV 85.4 fL (80.0-97.0) 07/26/24 14:16 MCH 30.5 pg (27.0-32.0) 07/26/24 14:16 MCHC 35.7 g/dL (32.0-37.0) 07/26/24 14:16 Plt Count 282 10*3/uL (140-440) 07/26/24 14:16 MPV 8.7 fL (9.5-12.2) L 07/26/24 14:16 Immature Gran % (Auto) 0.3 % 07/26/24 14:16 Neutrophils % 74.4 % 07/26/24 14:16 Lymphocytes % 17.3 % 07/26/24 14:16 Monocytes % 7.5 % 07/26/24 14:16 Eosinophils % 0.1 % 07/26/24 14:16 Basophils % 0.4 % 07/26/24 14:16 Immature Gran # 0.02 10*3/uL (0.00-0.04) 07/26/24 14:16 Neutrophils # 5.83 10*3/uL (1.80-7.70) 07/26/24 14:16 Lymphocytes # 1.36 10*3/uL (0.90-5.00) 07/26/24 14:16 Monocytes # 0.59 10*3/uL (0.20-1.00) 07/26/24 14:16 Eosinophils # 0.01 10*3/uL (0.04-0.35) L 07/26/24 14:16 Basophils # 0.03 10*3/uL (0.00-0.10) 07/26/24 14:16 Sodium 138 mmol/L (137-145) 07/26/24 14:16 Potassium 3.6 mmol/L (3.5-5.1) 07/26/24 14:16 Chloride 98 mmol/L (98-107) 07/26/24 14:16 Carbon Dioxide 24 mmol/L (22-30) 07/26/24 14:16 Anion Gap 16 mmol/L 07/26/24 14:16 BUN 9 mg/dL (9-20) 07/26/24 14:16 Creatinine 0.94 mg/dL (0.66-1.25) 07/26/24 14:16 Est GFR (CKD-EPI)AfAm >90 (>60 ml/min/1.73 sqM) 07/26/24 14:16 Est GFR (CKD-EPI)NonAf >90 (>60 ml/min/1.73 sqM) 07/26/24 14:16 Glucose 108 mg/dL (74-99) H 07/26/24 14:[address] Glu mg/dL 103 mg/dL 07/27/24 07:54 Hemoglobin A1c 5.2 % (<=6.0) 07/27/24 07:54 Calcium 9.5 mg/dL (8.4-10.2) 07/26/24 14:16 Total Bilirubin 1.0 mg/dL (0.2-1.3) 07/27/24 07:54 Conjugated Bilirubin 0.0 mg/dL (0.0-0.3) 07/27/24 07:54 Unconjugated Bilirubin 0.8 mg/dL (0.0-1.1) 07/27/24 07:54 Delta Bilirubin 0.2 mg/dL (0.0-0.2) 07/27/24 07:54 AST 77 U/L (17-59) H 07/27/24 07:54 ALT 88 U/L (4-49) H 07/27/24 07:54 Alkaline Phosphatase 72 U/L (38-126) 07/27/24 07:54 Total Protein 6.8 g/dL (6.3-8.2) 07/27/24 07:54 Albumin 4.5 g/dL (3.5-5.0) 07/27/24 07:54 Triglycerides 82.00 mg/dL (0.00-149.00) 07/27/24 07:54 Cholesterol 196.00 mg/dL (0.00-200.00) 07/27/24 07:54 LDL Cholesterol, Calc 111.9 mg/dL (0.0-131.0) 07/27/24 07:54 VLDL Cholesterol, Calc 16.40 mg/dL (5.00-40.00) 07/27/24 07:54 HDL Cholesterol 67.70 mg/dL (40.00-60.00) H 07/27/24 07:54 Cholesterol/HDL Ratio 2.90 Ratio 07/27/24 07:54 TSH 3.790 mIU/L (0.465-4.680) 07/27/24 07:54 Urine Color Colorless 07/26/24 20: Urine Appearance Clear (Clear) 07/26/24 20: Urine pH 5.0 (5.0-8.0) 07/26/24 20: Ur Specific [place] 1.004 (1.001-1.035) 07/26/24 20: Urine Protein Negative (Negative) 07/26/24 20: Urine Glucose (UA) Negative (Negative) 07/26/24 20: Urine Ketones Negative (Negative) 07/26/24: Urine Blood Negative (Negative) 07/26/24 20: Urine Nitrite Negative (Negative) 07/26/24 20: Urine Bilirubin Negative (Negative) 07/26/24: Urine Urobilinogen <2.0 mg/dL (<2.0) 07/26/24 20: Ur Leukocyte Esterase Negative (Negative) 07/26/24 20: Urine Opiates Screen Negative (Negative) 07/26/24 20: Urine Methadone Screen Negative (Negative) 07/26/24: Ur Propoxyphene Screen Negative (Negative) 07/26/24 20: Urine Barbiturates Negative (Negative) 07/26/24 20: Ur Phencyclidine Scrn Negative (Negative) 07/26/24 20: Ur Amphetamine Screen Negative (Negative) 07/26/24: U Benzodiazepines Scrn Negative (Negative) 07/26/24 20: Urine Cocaine Screen Negative (Negative) 07/26/24 20:23 U Cannabinoids Screen Negative (Negative) 07/26/24 20:23 Urine Alcohol Positive (Negative) A 07/26/24 20:23 U Creatinine Drug Scrn 48.2 mg/dL (>=20.0) 07/26/24 20:23 SARS-CoV-2 (PCR) Not Detected (Not Detectd) 07/26/24 18:46 Vital Signs Temp 97.9 F 07/31/24 20:48 Pulse 94 07/31/24 20:48 Resp 18 07/31/24 20:48 BP 119/79 07/31/24 20:48 Pulse Ox 95 07/31/24 20:48 FiO2 Patient Condition at Discharge: Stable Plan - Discharge Summary New Discharge Prescriptions: New Folic Acid 1 mg PO DAILY tab Gabapentin 600 mg PO BID PRN 30 Days #60 tab PRN Reason: Pain Ziprasidone [Geodon] 20 mg PO BID 30 Days #60 cap Ibuprofen [Motrin] 600 mg PO Q6HR PRN tab PRN Reason: Moderate Pain (Scale 4 To 6) Thiamine [Vitamin B-1] 100 mg PO DAILY tab Nicotine 21Mg/24Hr Patch [Habitrol] 1 patch TRANSDERM DAILY 14 Days #14 patch [place] Carbonate 300 mg PO HS 30 Days #30 cap Multivitamins, Thera [Multivitamin (formulary)] 1 each PO DAILY tab traZODone HCL 150 mg PO HS PRN 30 Days #30 tablet PRN Reason: Insomnia Sertraline [Zoloft] 100 mg PO HS 30 Days #30 tab Continue Budesonide/Formoterol Fumarate [Symbicort 80-4.5 Mcg Inhaler] 2 puff INHALATION RT-BID Albuterol Inhaler [Ventolin Hfa Inhaler] 2 puff INHALATION RT-QID PRN PRN Reason: Shortness Of Breath Buprenorphine HCl/Naloxone HCl [Suboxone 8 mg-2 mg Sl Film] 1 film SL TID Metoprolol Succinate (ER) [Toprol XL] 100 mg PO DAILY 30 Days #30 tab Discontinued [place] Carbonate 150 mg PO BID 30 Days #60 cap valACYclovir HCL [Valtrex] 500 mg PO BID PRN PRN Reason: first sign of breakout Gabapentin 600 mg PO BID hydrOXYzine HCL [Atarax] 50 mg PO BID PRN PRN Reason: sleep/anxiety Sertraline HCl 150 mg PO HS Discharge Medication List Albuterol Inhaler [Ventolin Hfa Inhaler] 2 puff INHALATION RT-QID PRN 06/29/23 [History] Budesonide/Formoterol Fumarate [Symbicort 80-4.5 Mcg Inhaler] 2 puff INHALATION RT-BID 08/31/23 [History] Buprenorphine HCl/Naloxone HCl [Suboxone 8 mg-2 mg Sl Film] 1 film SL TID 08/31/23 [History] Folic Acid 1 mg PO DAILY tab 08/01/24 [Rx] Gabapentin 600 mg PO BID PRN 30 Days #60 tab 08/01/24 [Rx] Ibuprofen [Motrin] 600 mg PO Q6HR PRN tab 08/01/24 [Rx] [place] Carbonate 300 mg PO HS 30 Days #30 cap 08/01/24 [Rx] Metoprolol Succinate (ER) [Toprol XL] 100 mg PO DAILY 30 Days #30 tab 08/01/24 [Rx] Multivitamins, Thera [Multivitamin (formulary)] 1 each PO DAILY tab 08/01/24 [Rx] Nicotine 21Mg/24Hr Patch [Habitrol] 1 patch TRANSDERM DAILY 14 Days #14 patch 08/01/24 [Rx] Sertraline [Zoloft] 100 mg PO HS 30 Days #30 tab 08/01/24 [Rx] Thiamine [Vitamin B-1] 100 mg PO DAILY tab 08/01/24 [Rx] Ziprasidone [Geodon] 20 mg PO BID 30 Days #60 cap 08/01/24 [Rx] traZODone HCL 150 mg PO HS PRN 30 Days #30 tablet 08/01/24 [Rx] Follow up Appointment(s)/Referral(s): [facility] [Outside] - 08/04/24 3:00 pm (08/04 @ 15:00 with Alvaro Ballesteros 08/08 @ 11:30 with Mariia Paez) Ted Oneil MD [Primary Care Provider] - 1-2 days Patient Instructions/Handouts: Mood Disorders (DC), Post Traumatic Stress Disorder (DC), Generalized Anxiety Disorder (ED) Activity/Diet/Wound Care/Special Instructions: Avoid the use of street drugs and alcohol. Take all medications as prescribed. When you are in need of refills on your medications, please contact your medical provider and/or outpatient psychiatrist/provider to have this done. Please go to your scheduled outpatient appointment for aftercare treatment. If symptoms return or become worse, call the crisis line at and/or go to the nearest emergency room for evaluation. National Suicide Hotline [address] [facility] confidentiality statement: "The information contained in this communication, including attachments, is confidential, may be privileged, and is intended only for the use of the named recipient(s). Unauthorized use, discl osure, forwarding or copying is strictly prohibited and may be unlawful. If you have received this communication in error, please notify me IMMEDIATELY at the phone number or pager listed above. Discharge/Stand Alone Forms: AA Meetings Aleksey Castrejon Discharge Disposition: OTHER INSTITUTION NOT DEFINED
[2024-08-01 11:54] VITALS: BP 117/76; PULSE 96; TEMP 98
== END 2024-08-01 12:05 | DRG 817 ==
LOC: EC 12:21 → 3MHU 19:52
PROVIDERS: ADMIT Psychiatry & Neurology Psychiatry; ATTEND Psychiatry & Neurology Psychiatry
DX: T42.6X2A Poisoning by other antiepileptic and sedative-hypnotic drugs, intentional self-harm, initial encounter (principal); F10.20 Alcohol dependence, uncomplicated; F11.23 Opioid dependence with withdrawal; F39 Unspecified mood [affective] disorder; F17.290 Nicotine dependence, other tobacco product, uncomplicated; T40.496A Underdosing of other synthetic narcotics, initial encounter; F41.1 Generalized anxiety disorder; F43.10 Post-traumatic stress disorder, unspecified; G47.00 Insomnia, unspecified; Z79.51 Long term (current) use of inhaled steroids; Z79.899 Other long term (current) drug therapy; Z63.8 Other specified problems related to primary support group; Z91.138 Patient's unintentional underdosing of medication regimen for other reason; Z86.69 Personal history of other diseases of the nervous system and sense organs
CPT/HCPCS: 36415; 80053; 80061; 80076; 80306; 81003; 82075; 83036; 84443; 85025; 87635; 93005; 96361; 96374; 99285